=== PATIENT | female | born 1940 | race Caucasian/White ===

== ENCOUNTER 2020-01-22 15:07 | Outpatient (CLI) | payer MEDICARE, BC, SELFPAY ==
[2020-01-22 15:26] LABS: Basophils Percent Auto 0.5 % (0.2-1.2); Eosinophils Absolute Auto 0.1 K/mm3 (0-0.3); Eosinophils Percent Auto 1.3 % (0-4.4); Hematocrit 40.5 % (37.0-47.0); Hemoglobin 13.7 g/dL (12.0-15.0); Immature Granulocyte Absolute 0.02 K/mm3 (0.00-0.031); Immature Granulocyte Percent A 0.3 % (0-0.5); Lymphocytes Absolute Auto 2.82 K/mm3 (0.9-3.2); Lymphocytes Percent Auto 36.9 % (18.3-44.2); Mean Corpuscular HGB Conc 33.8 g/dl (32-36); Mean Corpuscular Hemoglobin 29.7 pg (26-34); Mean Corpuscular Volume 87.7 fl (80-100); Mean Platelet Volume 9.8 fl (7.4-10.4); Monocytes Absolute Auto 0.6 K/mm3 (0.1-0.6); Monocytes Percent Auto 7.6 % (2.6-8.5); Neutrophils Absolute Auto 4.1 K/mm3 (1.3-6.7); Neutrophils Percent Auto 53.4 % (45.5-73.1); Platelet Count Result 287 k/mm3 (150-375); Red Blood Count 4.62 M/mm3 (4.2-5.4); Red Cell Distribution Width 13.2 % (11.5-14.5); White Blood Count 7.6 K/mm3 (4.5-10.0)
[2020-01-22 15:39] LABS: Alanine Aminotransferase 18 U/L (4-35); Alkaline Phosphatase 62 U/L (38-126); Aspartate Amino Transferase 28 U/L (14-36); Bilirubin,Total 0.7 mg/dL (0.2-1.3); Blood Urea Nitrogen 9 mg/dL (7-17); Calcium 9.2 mg/dL (8.4-10.2); Carbon Dioxide 27 mmol/L (22-30); Chloride 106 mmol/L (98-107); Cholesterol 203 mg/dL (0-200); Estimated Glomerular Filt Rate > 60; Glucose 96 mg/dL (65-105); HDL Direct 39 mg/dL; Potassium 3.7 mmol/L (3.4-5.0); Sodium 139 mmol/L (137-145); Triglycerides 259 mg/dL (<150)
[2020-01-22 15:55] LABS: LDL Cholesterol Direct 115 mg/dL
[2020-01-22 16:35] LABS: Free T4 Free Thyroxine 0.99 ng/mL (0.78-2.19)
== END 2020-01-22 15:08 | disposition home or self-care (01) ==
PROVIDERS: PCP Family Medicine; Visit Provider Family Medicine
DX: R60.9 Edema, unspecified (principal); I10 Essential (primary) hypertension; Z79.899 Other long term (current) drug therapy
CPT/HCPCS: 36415; 80053; 80061; 84439; 84443; 85025

== ENCOUNTER 2020-03-18 15:01 | Outpatient (CLI) | payer MEDICARE, BC, SELFPAY ==
--- NOTE | ~2020-03-18 | MM_ITS ---
EXAMINATION: MM screening connie BI w fernando HISTORY: Screening TECHNIQUE: Craniocaudal and mediolateral oblique 3-D tomosynthesis images were obtained and synthetic 2-D images were generated. CAD analysis was submitted and interpreted. COMPARISON: Comparison to multiple prior studies sequentially, with oldest reviewed study dated 09/27. BREAST PARENCHYMAL COMPOSITION: There are scattered areas of fibroglandular density. FINDINGS: There is no evidence of suspicious mass, calcification, or architectural distortion to sugg est malignancy in either breast. There has been no suspicious interval change. IMPRESSION: 1. No mammographic evidence of malignancy. 2. Recommend routine screening mammography in one year. BI-RADS Category 1: Negative Reviewed, dictated and finalized at location A.
--- NOTE | ~2020-03-18 | DEXA_ITS ---
Bone Density Report Name: Sara Sparrow Age: 79 Sex: Female Ethnicity: White Date of : 1940 Indication: postmenopausal; Referring Provider: Arben Bautista Study: Bone densitometry was performed. Exam Date: March 18, 2020 Accession number: [id number] Bone Density: Region BMD T-score Z-score Classification AP Spine (L1-L4) 0.977 -0.6 2.0 Normal Femoral Neck (Left) 0.715 -1.2 1.1 Osteopenia Total Hip (Left) 0.871 -0.6 1.5 Normal Total Hip Bilateral Avg 0.832 -0.9 1.2 Normal Femoral Neck (Right) 0.640 -1.9 0.4 Osteopenia Total Hip (Right) 0.791 -1.2 0.8 Osteopenia World Health Organization criteria for BMD impression classify patients as: Normal (T-score at or above -1.0), Osteopenia (T-score between -1.0 and -2.5), or Osteoporosis (T-score at or below -2.5). 10-year Fracture Risk(1): Major Osteoporotic Fracture 15% Hip Fracture 4.1% Reported Risk Factors: [place] (), Neck BMD=0.640, BMI=25.6 (1) FRAX(R) Version 3.08. Fracture probability calculated for an untreated patient. Fracture probability may be lower if the patient has received treatment. Previous Exams: Region Exam Age BMD T-score BMD Change BMD Change Date g/cm2 vs Baseline vs Previous AP Spine(L1-L4) 03/18/2020 79 0.977 -0.6 0.019(2.0%)# -0.089(-8.4%)# 06/19/2008 68 1.066 0.2 0.108(11.3%)* 0.108(11.3%)* 02/08/2002 61 0.958 -0.8 Total Hip(Left) 03/18/2020 79 0.871 -0.6 -0.037(-4.1%)# -0.071(-7.6%)# 06/19/2008 68 0.942 0.0 0.034(3.7%)* 0.034(3.7%)* 02/08/2002 61 0.909 -0.3 Total Hip(Right) 03/18/2020 79 0.791 -1.2 -0.081(-9.3%)# -0.097(-11.0%) 06/19/2008 68 0.888 -0.4 0.016(1.9%) 0.016(1.9%) 02/08/2002 61 0.872 -0.6 *Denotes significance at 95% confidence level, LSC for AP Spine = 0.022 g/cm2, LSC for Total Hip = 0.027 g/cm2 Clinical Information Provided by Patient: Patient maximum height was 64 Menopause Age: 45 Drinks caffeinated beverages Onset of menses at age 17 Number of children 0 Impression: The patient has low bone mass, based on the Right Femoral Neck T-score. The patient has an estimated ten-year risk of hip fracture of 4.1% and an estimated ten-year risk of major fracture of 15%, based on the WHO FRAX algorithm. No significant bone loss was observed. Discussion: BONE DENSITY IS LOW AT ONE OR MORE SKELETAL SITES. THE PATIENT'S BMD AND CLINICAL RISK FACTORS CONTRIBUTE TO THIS
== END 2020-03-18 15:02 | disposition home or self-care (01) ==
LOC: ANHIMG 15:02
PROVIDERS: PCP Family Medicine; Visit Provider Family Medicine
DX: Z12.31 Encounter for screening mammogram for malignant neoplasm of breast (principal); Z78.0 Asymptomatic menopausal state; M85.852 Other specified disorders of bone density and structure, left thigh; M85.851 Other specified disorders of bone density and structure, right thigh
CPT/HCPCS: 77063; 77067; 77080

== ENCOUNTER 2020-06-17 10:25 | Emergency (ER) | payer MEDICARE, BC, SELFPAY ==
--- NOTE | ~2020-06-17 | XR_ITS ---
EXAMINATION: XR chest 1V portable DATE: 06/17/2020 11:17 INDICATION: Weakness. TECHNIQUE: A single frontal view of the chest was obtained. COMPARISON: Chest 2 views 07/19/2019 FINDINGS: There is mild atelectasis in left midlung zone. No pleural effusion or pneumothorax. The he art size is normal. IMPRESSION: 1. Mild atelectasis in left midlung zone. Reviewed, dictated and finalized at location B. [employer]
--- NOTE | 2020-06-17 10:30 | ECG_ITS ---
Measurements Intervals [place] Rate: 81 P: 58 GA: 149 QRS: -7 QRSD: 81 T: 13 QT: 354 QTc: 413 Interpretive Statements SINUS RHYTHM DELAYED PRECORDIAL R/S TRANSITION INFERIOR INFARCT, AGE INDETERMINATE BORDERLINE ST-T WAVE ABNORMALITY- ANTEROLAT/HIGH LAT LEADS BASELINE ARTIFACT- I, III, AVL ABNORMAL ECG Electronically Signed On 06-17-2020 10:59:45 MEDICAL SUPERINTENDENT by Abraham Sosa D.O.
[2020-06-17 10:32] VITALS: PULSE 88; RESP 24
[2020-06-17 10:33] VITALS: BP 147/77; PULSE 93; RESP 19; TEMP 36.2; O2SAT 99
[2020-06-17 10:34] VITALS: BP 147/77; PULSE 100; RESP 16; O2SAT 97
[2020-06-17 10:56] VITALS: PULSE 85
[2020-06-17 11:06] LABS: Basophils Percent Auto 0.3 % (0.2-1.2); Eosinophils Percent Auto 0.3 % (0-4.4); Hematocrit 45.5 % (37.0-47.0); Hemoglobin 15.2 g/dL (12.0-15.0); Immature Granulocyte Absolute 0.01 K/mm3 (0.00-0.031); Immature Granulocyte Percent A 0.2 % (0-0.5); Lymphocytes Absolute Auto 2.62 K/mm3 (0.9-3.2); Lymphocytes Percent Auto 44.4 % (18.3-44.2); Mean Corpuscular HGB Conc 33.4 g/dl (32-36); Mean Corpuscular Hemoglobin 29.5 pg (26-34); Mean Corpuscular Volume 88.2 fl (80-100); Mean Platelet Volume 9.8 fl (7.4-10.4); Monocytes Absolute Auto 0.5 K/mm3 (0.1-0.6); Monocytes Percent Auto 8.3 % (2.6-8.5); Neutrophils Absolute Auto 2.7 K/mm3 (1.3-6.7); Neutrophils Percent Auto 46.5 % (45.5-73.1); Platelet Count Result 242 k/mm3 (150-375); Red Blood Count 5.16 M/mm3 (4.2-5.4); Red Cell Distribution Width 13.3 % (11.5-14.5); White Blood Count 5.9 K/mm3 (4.5-10.0)
[2020-06-17 11:17] LABS: Alanine Aminotransferase 21 U/L (4-35); Alkaline Phosphatase 57 U/L (38-126); Anion Gap 9 mmol/L (8-16); Aspartate Amino Transferase 38 U/L (14-36); Bilirubin,Total 0.7 mg/dL (0.2-1.3); Blood Urea Nitrogen 13 mg/dL (7-17); Calcium 8.9 mg/dL (8.4-10.2); Carbon Dioxide 27 mmol/L (22-30); Chloride 103 mmol/L (98-107); Estimated CRCL calculation 42 ml/min; Estimated Glomerular Filt Rate > 60; Glucose 131 mg/dL (65-105); Potassium 3.8 mmol/L (3.4-5.0); Sodium 139 mmol/L (137-145)
--- NOTE | 2020-06-17 11:21 | ED.WEAKNESS ---
HPI - Weakness General Chief complaint: Weakness Stated complaint: altered mental status Time Seen by Provider: 06/17/20 11:05 History of Present Illness HPI Narrative: 80 yo female w/ h/o htn, hypercholesterolemia presents to the ED from home for weakness. She reports that she has not been feeling right for the past few days. She is not able to provide very much detail on her symptoms. She does say that she has fallen a few times in the past week. She does not endorse dizziness, but says that she does not know why she is falling. She has intermittent cough. Decreased appetite. No fever, SOB. Related Data Home Medications Medication Instructions Recorded Confirmed losartan 50 mg-hydrochlorothiazide 1 tablet PO DAILY 07/04/19 12.5 mg tablet Allergies Allergy/AdvReac Type Severity Reaction Status Date / Time Sulfa (Sulfonamide Allergy Unknown caused Verified 06/17/20 10:58 Antibiotics) kidney infection 60 years ago. Review of Systems Constitutional: Constitutional: Reports weakness Eyes: Eyes: Denies change in vision ENT: Denies sore throat Cardiovascular: Cardiovascular: Denies chest pain Respiratory: Respiratory: Reports cough, Denies dyspnea and Denies wheezing Gastrointestinal: Gastrointestinal: Denies abdominal pain, Denies constipation, Denies diarrhea, Denies nausea and Denies vomiting Genitourinary: Genitourinary: Denies hematuria, Denies nocturia and Denies dysuria Musculoskeletal: Musculoskeletal: Denies back pain Neurologic: Denies dizziness, Denies syncope and Reports weakness Psychiatric: Psychiatric: Reports anxiety [facility] Family History Family History Mother Family history of elevated blood lipids, Onset Age: 95 Father Family history of lymphoma Social History Social History Alcohol intake: current Gender identity (if verbalized by the patient): Female Exam Const: General: healthy appearing, no acute distress and alert Orientation/consciousness: patient oriented x3 HENMT: Head: normal to inspection Neck: Neck: normal visual inspection and no lymphadenopathy Chest: Chest palpation & inspection: no tenderness Resp: Effort & Inspection: normal respiratory effort Auscultation: clear to auscultation bilaterally, no rales, no rhonchi and no wheezes Cardio: Jugular venous distension: no JVD Rate: regular rate Rhythm: regular rhythm Heart sounds: no murmurs GI: Inspection: non-distended GI Palp: Yes Soft to palpation and No Tenderness to palpation present (GI) Skin: General skin exam: normal color Neuro: General: patient oriented x3, moves all extremities, no focal motor deficits and CN's II-XI intact bilaterally Speech: normal speech Gait exam (Neuro): Normal gait present Extrem: General: normal to inspection and no edema Psych: Appearance: well kempt Affect: normal affect Course Vital Signs Vital signs: Vital Signs Pulse Rate 88 06/17/20 10:32 Respiratory Rate 24 H 06/17/20 10:32 Temperature 36.2 C L 06/17/20 10:33 Pulse Rate 85 06/17/20 10:56 Respiratory Rate 16 06/17/20 10:34 Blood Pressure 147/77 H 06/17/20 10:34 Pulse Oximetry 97 06/17/20 10:34 MDM - Weakness MDM Narrative Medical decision making narrative: She seems to be mildly dehydrated otherwise very well appearing. Labs and imaging reassuring. I will swab her for COVID-19 due to the fact that her is high risk and she is having nonspecific symptoms. Medical Records Attestation: I reviewed the patient's medical records. Lab Data Attestation: I reviewed the patient's lab results. Result diagrams: 06/17/20 10:50 06/17/20 10:51 Labs: Lab Results 06/17/20 06/17/20 06/17/20 Range/Units 10:50 10:51 11:13 WBC 5.9 (4.5-10.0) K/mm3 RBC 5.16 (4.2-5.4) M/mm3 Hgb 15.2 H (12.0-1
[2020-06-17 11:23] LABS: Add Urine Microscopic? YES; Appearance Urine Cloudy (Clear); Bacteria Urine 4+ /hpf; Bilirubin Urine Negative (Negative); Blood Urine Negative (Negative); Color Urine Yellow (Yellow); Glucose Urine UA Negative (Negative); Ketones Urine Negative (Negative); Leukocyte Esterase Ur Negative LEU/UL (Negative); Mucus Urine Few /lpf; Nitrate Urine Negative (Negative); Protein Urine 1+ mg/dL (Negative); RBC Urine 0-2 /hpf (0-2); Specific Grav Ur 1.023 (1.001-1.035); Squamous Epithelial Cell Urine Many /hpf (Few); Transitional Epi Cells Urine Rare /hpf (None Seen); Urobilinogen Urine Negative mg/dL (<2.0); WBC Urine 0-3 /hpf
[2020-06-17] MEDS: SODIUM CHLORIDE 0.9% IV 500 ML 999 ML IV CONT (11:29)
[2020-06-17 14:12] VITALS: BP 147/70; PULSE 84; RESP 17; O2SAT 96
[2020-06-18 16:06] LABS: SARS-CoV-2 RNA PCR Positive
== END 2020-06-17 14:13 | disposition home or self-care (01) ==
PROVIDERS: Emergency Medicine; Emergency Provider Emergency Medicine; PCP Family Medicine
DX: U07.1 COVID-19 (principal); R94.31 Abnormal electrocardiogram [ECG] [EKG]
CPT/HCPCS: 36415; 71045; 80053; 81001; 85025; 87635; 93005; 96360; 99283; C9803; J7040; U0003

== ENCOUNTER 2020-12-24 14:54 | Outpatient (CLI) | payer MEDICARE, BC, SELFPAY ==
[2020-12-24 15:18] LABS: Basophils Absolute Auto 0.1 K/mm3 (0.0-0.1); Basophils Percent Auto 0.7 % (0.2-1.2); Eosinophils Absolute Auto 0.1 K/mm3 (0-0.3); Eosinophils Percent Auto 0.8 % (0-4.4); Hematocrit 44.3 % (37.0-47.0); Hemoglobin 14.3 g/dL (12.0-15.0); Immature Granulocyte Absolute 0.09 K/mm3 (0.00-0.031); Immature Granulocyte Percent A 1.2 % (0-0.5); Lymphocytes Absolute Auto 2.91 K/mm3 (0.9-3.2); Lymphocytes Percent Auto 39.8 % (18.3-44.2); Mean Corpuscular HGB Conc 32.3 g/dl (32-36); Mean Corpuscular Hemoglobin 28.6 pg (26-34); Mean Corpuscular Volume 88.6 fl (80-100); Mean Platelet Volume 9.8 fl (7.4-10.4); Monocytes Absolute Auto 0.7 K/mm3 (0.1-0.6); Monocytes Percent Auto 9.8 % (2.6-8.5); Neutrophils Absolute Auto 3.5 K/mm3 (1.3-6.7); Neutrophils Percent Auto 47.7 % (45.5-73.1); Platelet Count Result 315 k/mm3 (150-375); Red Cell Distribution Width 13.3 % (11.5-14.5); White Blood Count 7.3 K/mm3 (4.5-10.0)
[2020-12-24 15:22] LABS: Alanine Aminotransferase 17 U/L (4-35); Albumin Level 4.1 g/dL (3.5-5.1); Alkaline Phosphatase 66 U/L (38-126); Anion Gap 7 mmol/L (8-16); Aspartate Amino Transferase 28 U/L (14-36); Bilirubin,Total 1.1 mg/dL (0.2-1.3); Blood Urea Nitrogen 14 mg/dL (7-17); Calcium 9.6 mg/dL (8.4-10.2); Carbon Dioxide 30 mmol/L (22-30); Chloride 105 mmol/L (98-107); Cholesterol 176 mg/dL (0-200); Estimated Glomerular Filt Rate > 60; Glucose 104 mg/dL (65-105); HDL Direct 51 mg/dL; Potassium 3.7 mmol/L (3.4-5.0); Sodium 142 mmol/L (137-145); Triglycerides 83 mg/dL (<150)
[2020-12-24 15:31] LABS: Hemoglobin A1C 5.7 % (<5.7)
[2020-12-24 15:33] LABS: LDL Cholesterol Direct 87 mg/dL
[2020-12-24 15:58] LABS: Free T4 Free Thyroxine 1.21 ng/mL (0.78-2.19)
== END 2020-12-24 14:55 | disposition home or self-care (01) ==
LOC: ANHLAB 14:57
PROVIDERS: PCP Family Medicine; Visit Provider Family Medicine
DX: R60.9 Edema, unspecified (principal); E78.2 Mixed hyperlipidemia; E04.9 Nontoxic goiter, unspecified; Z51.81 Encounter for therapeutic drug level monitoring; Z79.899 Other long term (current) drug therapy; I10 Essential (primary) hypertension
CPT/HCPCS: 36415; 80053; 80061; 83036; 84439; 84443; 85025

== ENCOUNTER 2020-12-27 12:31 | Emergency (ER) | payer MEDICARE, BC, SELFPAY ==
[2020-12-27 12:39] VITALS: BP 179/91; PULSE 82; RESP 16; TEMP 36.4; O2SAT 100
[2020-12-27 12:43] VITALS: BP 179/91; PULSE 82; RESP 16; TEMP 36.4; O2SAT 100
--- NOTE | 2020-12-27 13:29 | ED.SKABFB ---
HPI - Skin/Abscess/Foreign Bdy General Chief complaint: Skin/Abscess/Foreign Body Stated complaint: Insect bite on stomach Time Seen by Provider: 12/27/20 13:20 Source: patient and RN notes reviewed Mode of arrival: ambulatory Limitations: no limitations History of Present Illness HPI narrative: Patient presents today complaining of an insect bite that she felt to her abdomen last night while walking her dog. States some itching and reports redness to the abdomen that has worsened since this morning. She has been using some topical antiitch cream with mild relief. Denies any history of abscesses, boils, staph infections. MD complaint: insect bite/sting Related Data Home Medications Medication Instructions Recorded Confirmed losartan 50 mg-hydrochlorothiazide 1 tablet PO DAILY 07/04/19 12/27/20 12.5 mg tablet Allergies Allergy/AdvReac Type Severity Reaction Status Date / Time Sulfa (Sulfonamide Allergy Unknown caused Verified 12/27/20 12:39 Antibiotics) kidney infection 60 years ago. Review of Systems Review of Systems: Narrative: CONSTITUTIONAL: Denies body aches, fever, chills, or sweats. EYES: Denies visual changes, redness, or discharge. ENT: Denies rhinorrhea, congestion, sore throat, or otalgia. CARDIOVASCULAR: Denies chest pain, palpitations, or edema. RESPIRATORY: Denies cough or dyspnea. GASTROINTESTINAL: Denies abdominal pain, nausea, vomiting, or diarrhea. GENITOURINARY: Denies dysuria or hematuria. SKIN: Insect bite and redness to abdomen MUSCULOSKELETAL: Denies back pain, joint pain, or myalgia. NEUROLOGIC: Denies headache, numbness, tingling, or weakness. PSYCH: Denies depression or anxiety. [facility] Family History Family History Mother Family history of elevated blood lipids, Onset Age: 95 Father Family history of lymphoma Social History Social History Smoking status: Never smoker Alcohol intake: current Gender identity (if verbalized by the patient): Female Comments At time of signature, I have reviewed and agree with nursing past medical, surgical, social and family history unless otherwise noted. Please see nursing chart for further information. There is no relevant family history pertinent to the presenting complaint Exam Narrative: Exam Narrative: GENERAL: Well-appearing, well-nourished, and in no acute distress. HEAD: Normocephalic, atraumatic. EYES: EOMI. No redness or drainage. Conjunctivae normal. ENT: Mucous membranes pink and moist. NECK: Normal AROM. CHEST: No respiratory distress. ABDOMEN: Soft, nontender, nondistended, normal active bowel sounds. MUSCULOSKELETAL: No bony tenderness. EXTREMITIES: Normal range of motion. No edema. SKIN: Warm, dry, no rash. Capillary refill normal. Normal skin turgor. 3 mm round pustule to the lower abdomen midline surrounded by 13 x 9 cm redness with slight induration. Warm to touch. No fluctuance noted. NEURO: No focal deficits. Alert and oriented x3. Gait steady. PSYCH: Normal affect. No signs of depression or anxiety. Course Vital Signs Vital signs: Vital Signs Temperature 97.6 F 12/27/20 12:39 Pulse Rate 82 12/27/20 12:39 Respiratory Rate 16 12/27/20 12:39 Blood Pressure 179/91 H 12/27/20 12:39 Pulse Oximetry 100 12/27/20 12:39 Temperature 97.6 F 12/27/20 12:43 Pulse Rate 82 12/27/20 12:43 Respiratory Rate 16 12/27/20 12:43 Blood Pressure 179/91 H 12/27/20 12:43 Pulse Oximetry 100 12/27/20 12:43 Reviewed. Pt has been instructed to follow up with her PCP regarding her elevated blood pressure today. Procedures Abscess I/D abdomen: Date of Incision: 12/27/20 Time of Incision: 13:30 Local Anesthetic: none Technique: other (incised with needle tip) Irrigation: No Packing used?: none I&D Results: O
== END 2020-12-27 13:35 | disposition home or self-care (01) ==
PROVIDERS: Emergency Provider Nurse Practitioner; PCP Family Medicine
DX: L03.311 Cellulitis of abdominal wall (principal); S30.861A Insect bite (nonvenomous) of abdominal wall, initial encounter; W57.XXXA Bitten or stung by nonvenomous insect and other nonvenomous arthropods, initial encounter; I10 Essential (primary) hypertension; J45.909 Unspecified asthma, uncomplicated; H26.9 Unspecified cataract
CPT/HCPCS: 10140; 99213; G0463

== ENCOUNTER 2020-12-29 06:48 | Outpatient (CLI) | payer MEDICARE, BC, SELFPAY ==
--- NOTE | ~2020-12-29 | CT_ITS ---
EXAMINATION: CT soft tissue neck w con DATE: 12/29/2020 07:17 INDICATION: Neck mass. TECHNIQUE: Computed tomography (CT) of the neck was performed with 75 mL Omnipaque-350 intravenous co ntrast. Automated exposure control and iterative reconstruction technique were employed. The dose-franklyn gth product was 439.16 mGy-cm. COMPARISON: None FINDINGS: The lung apices demonstrates mosaic attenuation, likely small airways disease. There are li mika changes of ocular lens replacement surgeries. There is plaque in the proximal internal carotid a rteries with less than 50% stenosis relative to normal distal artery lumen diameters. There are no pa thologically enlarged lymph nodes. Inferior to the hyoid centered to the left midline, there is a 2.6 x 1.5 x 2.3 cm cystic mass that abuts a long pyramidal lobe of the thyroid. There are nodules in the left thyroid lobes measuring up to 9 mm, likely not clinically significant. IMPRESSION: 1. 2.6 cm cystic mass inferior to the hyoid centered to the left of midline, consistent with a thyrog lossal duct cyst. Reviewed, dictated and finalized at location A. IMPRESSION: 1. 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
== END 2020-12-29 06:49 | disposition home or self-care (01) ==
PROVIDERS: PCP Family Medicine; Visit Provider Family Medicine
DX: J98.4 Other disorders of lung (principal)
CPT/HCPCS: 70491; Q9967

== ENCOUNTER 2021-04-12 09:52 | Outpatient (CLI) | payer MEDICARE, BC, SELFPAY ==
--- NOTE | ~2021-04-12 | MM_ITS ---
EXAMINATION: MM screening connie BI w fernando HISTORY: Screening mammogram TECHNIQUE: Craniocaudal and mediolateral oblique 3-D tomosynthesis images were obtained and synthetic 2-D images were generated. CAD analysis was submitted and interpreted. COMPARISON: 03/18/2020, 09/27/2018, 07/04/2017 BREAST PARENCHYMAL COMPOSITION: The breasts are heterogeneously dense, which may obscure small masses . FINDINGS: Scattered benign-appearing calcifications are present. There is no evidence of suspicious m ass, calcification, or architectural distortion to suggest malignancy in either breast. There has bee n no suspicious interval change. IMPRESSION: 1. No mammographic evidence of malignancy. 2. Recommend routine screening mammography in one year. BI-RADS Category 2: Benign finding(s). Reviewed, dictated and finalized at location A.
== END 2021-04-12 09:53 | disposition home or self-care (01) ==
LOC: ANHIMG 09:54
PROVIDERS: PCP Family Medicine; Visit Provider Family Medicine
DX: Z12.31 Encounter for screening mammogram for malignant neoplasm of breast (principal)
CPT/HCPCS: 77063; 77067

== ENCOUNTER 2021-04-13 10:10 | Inpatient (IN) | payer MEDICARE, BC, SELFPAY ==
[2021-04-13] VITALS (9 sets, daily range): BP systolic 127–156; BP diastolic 57–84; PULSE 69–94; RESP 16–20; TEMP 36.4–36.8; O2SAT 97–100; BMI 24.2
--- NOTE | ~2021-04-13 | CT_ITS ---
EXAMINATION: CT brain wo con EXAM DATE: 04/13/2021 13:51 INDICATION: Dizziness . TECHNIQUE: Spiral CT of the head was performed without contrast. Axial, coronal and sagittal images were reviewed. The dose-length product (DLP) for this examination was 529.67 mGy-cm. The exposure w as tailored according to patient size, and iterative reconstruction (ASIR) was used as additional dos e reduction technique. There is no prior study for comparison. FINDINGS: There is no acute intraparenchymal hemorrhage. No evidence of intraparenchymal brain mass lesion. No evidence of acute infarction. Please note that initial head CT has limited sensitivity f or small or acute infarctions. There is moderate periventricular and subcortical hypodensity, nonspec ific but probably related to small vessel ischemic disease. There is prominence of the sulci and ve ntricles related to cerebral atrophy. There is intracranial carotid arteriosclerosis. There are no extra-axial collections. There is no mass effect or midline shift. Patient has had bilateral ocula r lens surgery. Soft tissue is unremarkable. The visualized sinuses and mastoid air cells are well aerated. IMPRESSION: 1. No acute intracranial findings. 2. Chronic age related findings. Reviewed, dictated and finalized at location A.
--- NOTE | ~2021-04-13 | CT_ITS ---
EXAMINATION: CT abdomen pelvis wo/w con EXAM DATE: 04/14/2021 17:13 INDICATION: 4 cm retroperitoneal mass on chest CTA 04/13. TECHNIQUE: Spiral CT of the abdomen and pelvis was performed without contrast. Abdomen was rescanned with intravenous injection of 100 mL Omnipaque 350. Oral contrast was also administered for the post contrast scan. Axial, coronal and sagittal images of the abdomen and pelvis were reviewed. The dose -length product (DLP) for this examination was 343.83 mGy-cm. The exposure was tailored according to patient size (auto mA exposure control), and iterative reconstruction (ASIR) was used as additional dose reduction technique. Comparison is made to prior examination from 04/13/2021 CT pulmonary scan. FINDINGS: There is bilobulated mass at the gastric cardia, approximately half of which projects into the lumen of the stomach and the other half in the left suprarenal region. This measures about 7.5 x 4.6 cm as measured on the coronal sequence. 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 There are gallstones within an othe rwise unremarkable gallbladder. No evidence of obstructive biliary disease. Portal and splenic vein s are patent. Kidneys enhance symmetrically. There is no hydronephrosis. No nephrolithiasis on the precontrast scan The uterus is not identified and has likely been surgically resected. The bladder is unremarkable. There is no retroperitoneal or pelvic lymphadenopathy. There is moderate scattere d arteriosclerotic disease. There are no findings to suggest appendicitis. There is expected amount of colonic stool. No jami e intraperitoneal gas. The heart is normal in size. There are no pericardial or pleural effusions. The lung bases are unremarkable. There are no osteoblastic or osteolytic lesions identified. 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 Lymphoma or other h istology also possible; endoscopy, biopsy indicated. No lymphadenopathy. Reviewed, dictated and finalized at location A. IMPRESSION: Gastric cardial mass most likely gastrointestinal stromal cell tumo r. Lymphoma or other histology also possible; endoscopy, biopsy indicated. No l ymphadenopathy.
--- NOTE | ~2021-04-13 | XR_ITS ---
XR chest 2V DATE: 04/13/2021 10:33 INDICATION: Dyspnea TECHNIQUE: PA and lateral views COMPARISON: 06/17/2020 portable upright AP chest FINDINGS: Normal heart size. No hilar or mediastinal enlargement. Minimal discoid atelectasis in the right mid lung. The lungs are clear of infiltrate or consolidation. No pleural effusion or pulmonary vascular congestion or pneumothorax. Degenerative spurring of the thoracic spine. IMPRESSION: Minimal discoid atelectasis in the right mid lung; no active cardiopulmonary disease Reviewed, dictated and finalized at location A. IMPRESSION: Minimal discoid atelectasis in the right mid lung; no active cardio pulmonary disease
--- NOTE | ~2021-04-13 | CT_ITS ---
EXAMINATION: CTA chest PE protocol DATE: 04/13/2021 13:51 INDICATION: Shortness of breath, dizziness TECHNIQUE: Computed tomography angiography (CTA) of the chest was performed with 100 mL Omnipaque-350 intravenous contrast timed to evaluate the pulmonary arteries. Coronal maximum intensity projection 3D-reconstructions were created by the technologist. Automated exposure control and iterative reconst ruction technique were employed. Exam dose: 261.75 mGy-cm total exam DLP. COMPARISON: 04/13/2021 2 view chest FINDINGS: There is diagnostic contrast enhancement of the pulmonary arteries and no evidence of pulmo nary embolism. No thoracic aortic aneurysm or dissection. There is coronary artery calcification. Normal heart size. No pericardial or pleural effusion. No hilar or mediastinal mass lesion or lymphadenopathy. There is a 4 mm nodule of the middle lobe (series 4 image 66). There is mild discoid atelectasis or scarring in the middle lobe and lingula. There is patchy groundglass density of the lungs which may indicate small airways disease. Incidentally noted are multiple gallstones. Normal morphology of the right adrenal gland. There is an approximately 3.2 x 4 cm soft tissue densit y adjacent to the left adrenal gland, situated posterior aspect of the upper body of the stomach, wit hout intervening fat interface between this soft tissue density in the posterior wall of the stomach, bordered inferiorly by the upper pole of the kidney and by the medial aspect of the spleen. This terrell ht be a diverticulum or mass of the posterior aspect of the stomach, including gastrointestinal jagdeep al tumor, left adrenal mass or much less likely upper pole left renal mass lesion or retroperitoneal sarcoma. Consider repeat CT abdomen imaging with oral contrast medium. Degenerative disc disease of the lower cervical spine. 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 No suspicious osteolytic or osteoblastic lesions are noted. IMPRESSION: No evidence of pulmonary embolism 4 mm nonspecific middle lobe mass; six-month CT follow-up is recommended Mild discoid atelectasis or scarring of the middle lobe and lingula Mild patchy groundglass density of the lungs, possibly due to small airways disease 3.2 x 4 cm left retroperitoneal soft tissue density. Differential diagnosis includes left adrenal mas s, gastric mass, gastric diverticulum, gastrointestinal stromal tumor, retroperitoneal sarcoma Reviewed, dictated and finalized at [facility]. Reviewed, dictated and finalized at location A. IMPRESSION: No evidence of pulmonary embolism 4 mm nonspecific middle lobe mass; six-month CT follow-up is recommended Mild discoid atelectasis or scarring of the middle lobe and lingula Mild patchy groundglass density of the lungs, possibly due to small airways dis ease 3.2 x 4 cm left retroperitoneal soft tissue density. Differential diagnosis inc ludes left adrenal mass, gastric mass, gastric diverticulum, gastrointestinal s tromal tumor, retroperitoneal sarcoma
--- NOTE | 2021-04-13 10:18 | ECG_ITS ---
Measurements Intervals [place] Rate: 87 P: 56 LA: 145 QRS: -6 QRSD: 87 T: 46 QT: 358 QTc: 432 Interpretive Statements SINUS RHYTHM INCOMPLETE RIGHT BUNDLE BRANCH BLOCK INFERIOR INFARCT, AGE INDETERMINATE BORDERLINE ST-T WAVE ABNORMALITY- ANTEROLATERAL LEADS BASELINE ARTIFACT- I, II, AVR, AVL ABNORMAL ECG Electronically Signed On 04-13-2021 15:03:20 CDT by Abraham Sosa D.O.
[2021-04-13 11:53] LABS: Basophils Percent Auto 0.3 % (0.2-1.2); Eosinophils Percent Auto 0.4 % (0-4.4); Hematocrit 31.1 % (37.0-47.0); Hemoglobin 9.9 g/dL (12.0-15.0); Immature Granulocyte Absolute 0.07 K/mm3 (0.00-0.031); Immature Granulocyte Percent A 0.7 % (0-0.5); Lymphocytes Absolute Auto 1.93 K/mm3 (0.9-3.2); Lymphocytes Percent Auto 19.3 % (18.3-44.2); Mean Corpuscular HGB Conc 31.8 g/dl (32-36); Mean Corpuscular Hemoglobin 29.7 pg (26-34); Mean Corpuscular Volume 93.4 fl (80-100); Mean Platelet Volume 9.4 fl (7.4-10.4); Monocytes Absolute Auto 0.6 K/mm3 (0.1-0.6); Monocytes Percent Auto 6.3 % (2.6-8.5); Neutrophils Absolute Auto 7.3 K/mm3 (1.3-6.7); Platelet Count Result 416 k/mm3 (150-375); Red Blood Count 3.33 M/mm3 (4.2-5.4); Red Cell Distribution Width 15.3 % (11.5-14.5)
[2021-04-13 11:55] LABS: Add Urine Microscopic? NO; Appearance Urine Clear (Clear); Bilirubin Urine Negative (Negative); Blood Urine Negative (Negative); Color Urine Straw (Yellow); Glucose Urine UA Negative (Negative); Ketones Urine Negative (Negative); Leukocyte Esterase Ur Negative LEU/UL (Negative); Nitrate Urine Negative (Negative); Protein Urine Negative (Negative); Specific Grav Ur 1.005 (1.001-1.035); Urobilinogen Urine Negative mg/dL (<2.0)
[2021-04-13 12:05] LABS: Alanine Aminotransferase 18 U/L (4-35); Albumin Level 3.9 g/dL (3.5-5.1); Alkaline Phosphatase 61 U/L (38-126); Anion Gap 5 mmol/L (8-16); Aspartate Amino Transferase 30 U/L (14-36); Bilirubin,Total 0.7 mg/dL (0.2-1.3); Blood Urea Nitrogen 16 mg/dL (7-17); Calcium 9.2 mg/dL (8.4-10.2); Carbon Dioxide 33 mmol/L (22-30); Chloride 101 mmol/L (98-107); Estimated CRCL calculation 42 ml/min; Estimated Glomerular Filt Rate > 60; Glucose 113 mg/dL (65-110); Potassium 3.9 mmol/L (3.4-5.0); Sodium 139 mmol/L (137-145)
[2021-04-13 12:17] LABS: NT Pro B Type Natriuretic Pept 117 pg/mL (5-100); Troponin I < 0.012 ng/mL (0.000-0.034)
[2021-04-13 12:19] LABS: INR 0.9; Prothrombin Time 12.4 Seconds (11.1-14.7)
[2021-04-13 12:22] LABS: D Dimer 0.75 ug/mL (<0.48)
--- NOTE | 2021-04-13 12:37 | ED.GENADULT ---
HPI - General Adult General Chief complaint: Shortness of Breath/Dyspnea Stated complaint: dizzy, dsypnea Time Seen by Provider: 04/13/21 11:24 History of Present Illness HPI narrative: Patient is 80 years old white female presented to the ED with dizziness and hard to breathe for the last 2 weeks. Patient lives alone, lost her September 2020, have trouble sleeping, complaining of intermittent dizziness started 2 weeks ago, gets worse on exertion, also hard to breathe which is almost constantly. Patient did not see her family physician for months, patient been fully vaccinated for COVID-19. History of hyperlipidemia, denies any history of malignancy. Patient does not smoke or drink or uses drugs. Related Data Allergies Allergy/AdvReac Type Severity Reaction Status Date / Time Sulfa (Sulfonamide Allergy Unknown caused Verified 01/14/21 14:54 Antibiotics) kidney infection 60 years ago. Review of Systems Review of Systems: CONSTITUTIONAL: Denies fever, chills, or sweats. EYES: Denies visual changes, redness, or discharge. ENT: Denies rhinorrhea, congestion, sore throat, or otalgia. CARDIOVASCULAR: Denies chest pain, palpitations, or edema. RESPIRATORY: Denies cough or dyspnea. GASTROINTESTINAL: Denies abdominal pain, nausea, vomiting, or diarrhea. GENITOURINARY: Denies dysuria or hematuria. SKIN: Denies rash or itching. MUSCULOSKELETAL: Denies back pain, joint pain, or myalgia. NEUROLOGIC: Denies headache, numbness, or weakness. PSYCHIATRIC: Denies anxiety or depression. [facility] Family History Family History Mother Family history of elevated blood lipids, Onset Age: 95 Thyroid disorder Father Family history of lymphoma Sibling Thyroid disorder Social History Social History Smoking status: Never smoker Alcohol intake: current Substance use: never Gender identity (if verbalized by the patient): Female Exam Narrative: General appearance: Well-developed, well-nourished, looks depressed Skin: Normal color Head: Normocephalic, nontraumatic Eyes: Clear conjunctiva ENT: Oropharynx normal, ears normal, nose normal Neck: Supple, nontender Chest and respiratory: Airway patent, no respiratory distress, no accessory muscle use Heart: Regular rate/rhythm Abdomen: Soft, nontender, no organomegaly, quiet bowel sounds, rectal exam showed black tarry stool, guaiac positive, no gross blood, no mass, no anal pain Vascular: Normal peripheral pulses, normal capillary refill. Musculoskeletal: Normal range of motion, nontender back Neurologic: Alert and oriented ?3, PRECISION FILER HAND is normal as tested, no gross motor deficit Course Course Emergency Course: Stable Consultations Consultation #1: Dr. Estrella Date: 04/13/21 Time: 16:27 Vital Signs Vital signs: Vital Signs Temperature 36.7 C 04/13/21 10:13 Pulse Rate 84 04/13/21 10:13 Respiratory Rate 20 04/13/21 10:13 Blood Pressure 156/84 H 04/13/21 10:13 Pulse Oximetry 100 04/13/21 10:13 Temperature 36.7 C 04/13/21 10:13 Pulse Rate 75 04/13/21 15:48 Respiratory Rate 18 04/13/21 15:48 Blood Pressure 137/57 L 04/13/21 15:48 Pulse Oximetry 97 04/13/21 15:48 Medical Decision Making [facility] Narrative Medical decision making narrative: Patient presents with dizziness and shortness of breath over the last 2 weeks. My differential diagnosis as below. Labs, CT head, orthostatic blood pressure ordered. Further plan to follow. Differential Diagnosis Differential Diagnosis: Anxiety related symptoms, pulmonary congestion, pulmonary embolism, khadar
[2021-04-13] MEDS: PANTOPRAZOLE SODIUM IV 40 MG VIAL IV PUSH (17:19)
--- NOTE | 2021-04-13 18:00 | ADMGEN ---
This patient, Sara Sparrow, was admitted to Medical Room 251-. Patient/family oriented to hospital policies and general routines including ID bracelet, bed and alarms, visiting hours, pain management, procedures, bathroom and other care routines, personal items, smoking policy, room service/diet, and visiting hours. Information on how to activate the Rapid Response Team has been discussed. Patient/Family are encouraged to report perceived risks to care and to ask questions if they do not understand what they are told or what they should do.
[2021-04-13] MEDS: SODIUM CHLORIDE 0.9% IV 1,000 ML 125 ML IV CONT (18:03)
[2021-04-13 18:09] LABS: Hematocrit 31.8 % (37.0-47.0); Hemoglobin 10.2 g/dL (12.0-15.0)
--- NOTE | 2021-04-13 21:00 | PM.IMHP ---
H&P: HPI History of Present Illness Date/Time: 04/13/21 21:00 Chief Complaint: Dyspnea on exertion and dizziness. Narrative: This is a very pleasant 80-year-old female with history of GERD and hypercholesterolemia who presented to the emergency department earlier today via private vehicle from home for evaluation of dyspnea on exertion and dizziness. The patient is very healthy and typically walks her dog 2 to 3 miles each day. Over the last several weeks she has become fatigued with walking with progressive dyspnea on exertion and it is to the point where she can barely walk a mile without feeling exhausted and short of breath. She has also had episodes of lightheadedness and dizziness and thus she came in today for evaluation. On initial workup she was found to have a hemoglobin of 9.9 and on review of previous labs her hemoglobin is typically anywhere between 13.5 and 14.5. Her stool was also noted to be guaiac positive and with further questioning she does admit that her stools have been a bit dark for the last couple of weeks, though she has had normal stools as well. CT of the abdomen and pelvis showed a 3.2 x 4 cm left retroperitoneal soft tissue density with a broad differential diagnosis. She has no known history malignancy but does report nearly a 25 lb weight loss in the last 6 months or so however she lost her in September 2020 and she admits that she was not taking good care of herself while he was still alive and she began with losing weight at that time. She has not had abdominal or epigastric discomfort and she denies abdominal distension and belching. She was previously diagnosed with GERD and took at PPI as needed though she has not had issues with that for quite some time. She has not had a colonoscopy done for several years. Review of Systems Review of Systems: Twelve systems were reviewed with pertinent positives and negatives as per HPI. No fever, chills, or sweats. No recent cold or flu symptoms. She denies cough. Over the last year so she has developed swelling in her neck and was diagnosed with a thyroglossal cyst which is scheduled to be removed sometime in the near future. She denies dysphagia but on occasion she does note that it feels as though she may have difficulty swallowing or as though she has phlegm in the back of her throat. No chest pain, pleuritic pain, or palpitations. No orthopnea, PND, or lower extremity edema. She denies nausea and vomiting. No diarrhea, in fact she tends to be a little more on the constipated side at baseline. No dysuria or hematuria. She has not noticed any lymphadenopathy. No history of anemia or blood transfusions. Except as documented, all other systems were reviewed and are negative. [facility] Past Medical History Medical History (Updated 04/13/21 @ 23:35 by Tabby Dill PA-C) Gastroesophageal reflux disease Hypercholesterolemia Osteopenia Thyroglossal duct cyst Surgical History Surgical History (Updated 04/13/21 @ 23:30 by Tabby Dill PA-C) History of bilateral salpingo-oophorectomy (07/2002) At the time of an exploratory laparotomy done for a pelvic mass, found to have a benign growth on the right ovary, reportedly a cyst adenofibroma. History of colonoscopy (11/2008) Internal hemorrhoids. History of exploratory laparotomy (07/2002) History of hysterectomy for benign disease History of tonsillectomy (1955) Family History Family History Mother Family history of elevated blood lipids, Onset Age: 95 Thyroid disorder Father Family history of lymphoma Sibling Thyroid disorder Social History Social History (Updated 04/13/21 @ 23:32 by Tabby Dill PA-C) Social History: Surrogate decision maker: Vanessa Tidwell, . Code status: Full code. Smoking packs per day: 0.25 Smoking cigarettes per day: 5.0 Years smoked: 2 Smoking pack-years: 0.50 Smoking status: Former smoker
[2021-04-13 22:51] LABS: Hemoglobin 8.5 g/dL (12.0-15.0)
[2021-04-14] VITALS (12 sets, daily range): BP systolic 100–140; BP diastolic 46–67; PULSE 66–75; RESP 16–23; TEMP 36.2–36.9; O2SAT 93–100; BMI 24.4
[2021-04-14 05:39] LABS: Basophils Percent Auto 0.4 % (0.2-1.2); Eosinophils Absolute Auto 0.1 K/mm3 (0-0.3); Eosinophils Percent Auto 1.6 % (0-4.4); Hematocrit 26.7 % (37.0-47.0); Hemoglobin 8.5 g/dL (12.0-15.0); Immature Granulocyte Absolute 0.02 K/mm3 (0.00-0.031); Immature Granulocyte Percent A 0.4 % (0-0.5); Lymphocytes Absolute Auto 1.81 K/mm3 (0.9-3.2); Lymphocytes Percent Auto 32.1 % (18.3-44.2); Mean Corpuscular HGB Conc 31.8 g/dl (32-36); Mean Corpuscular Hemoglobin 30.1 pg (26-34); Mean Corpuscular Volume 94.7 fl (80-100); Mean Platelet Volume 9.5 fl (7.4-10.4); Monocytes Absolute Auto 0.5 K/mm3 (0.1-0.6); Monocytes Percent Auto 9.4 % (2.6-8.5); Neutrophils Absolute Auto 3.2 K/mm3 (1.3-6.7); Neutrophils Percent Auto 56.1 % (45.5-73.1); Platelet Count Result 326 k/mm3 (150-375); Red Blood Count 2.82 M/mm3 (4.2-5.4); Red Cell Distribution Width 15.6 % (11.5-14.5); White Blood Count 5.6 K/mm3 (4.5-10.0)
[2021-04-14 05:52] LABS: Alanine Aminotransferase 15 U/L (4-35); Albumin Level 3.1 g/dL (3.5-5.1); Alkaline Phosphatase 52 U/L (38-126); Anion Gap 4 mmol/L (8-16); Aspartate Amino Transferase 22 U/L (14-36); Bilirubin,Total 0.7 mg/dL (0.2-1.3); Blood Urea Nitrogen 12 mg/dL (7-17); Calcium 8.2 mg/dL (8.4-10.2); Carbon Dioxide 29 mmol/L (22-30); Chloride 108 mmol/L (98-107); Estimated CRCL calculation 42 ml/min; Estimated Glomerular Filt Rate > 60; Glucose 94 mg/dL (65-110); Potassium 3.9 mmol/L (3.4-5.0); Sodium 141 mmol/L (137-145)
[2021-04-14 06:28] LABS: Iron 24 ug/dL (37-170)
[2021-04-14 06:37] LABS: Percent Iron Saturation 8 % (20-50)
[2021-04-14 06:55] LABS: Folic Acid > 20.0 ng/mL (2.76->20)
[2021-04-14] MEDS: PANTOPRAZOLE SODIUM IV 40 MG VIAL IV PUSH ×2 (07:41→20:36)
--- NOTE | 2021-04-14 10:01 | PM.IMPN ---
Progress Note: A&P Additional Plan START OF DOCTOR MINGO?S PROGRESS NOTE Subjective: The patient endorses no complaints at this time. She states that the dizziness that she is experiencing upon hospitalization has resolved. Overnight she was here, nausea, rigors, vomiting, cough, wheeze, abdominal pain, chest pain, dyspnea, lightheadedness, dizziness, or any other concerns or complaints. I have explained to the patient her current medical condition plan of care and I have answered all her questions Objective: General: -Alert -No acute distress -No dyspnea -No tachypnea Heart: -Regular rate -Regular rhythm -No murmurs -No gallops -No rubs Lungs: -No wheeze -No rhonchi -No rales Abdomen: -Normal bowel sounds in all four quadrants -No rebound -No guarding -No tenderness Extremities: -2/4 pulse in all four extremities -No clubbing -No cyanosis -No edema Additional Details / Additional Findings / Exceptions / Miscellaneous: Pertinent Laboratory Results / Pertinent Radiology Results / Pertinent Diagnostic Results / Pertinent Vital Signs: Vital signs stable. Hemoglobin 8.5 Assessment / Plan: Melena. Protonix 40 mg IV q.12 hours. Gastroenterology consult pending. Will monitor hemoglobin closely Iron deficiency anemia. Monitor hemoglobin closely. Ferrous sulfate 325 mg p.o. b.i.d. plus vitamin-C 500 mg p.o. daily GERD. Protonix 40 mg IV q.12 hours Hyperlipidemia. Lipitor 20 mg p.o. q.h.s. Osteopenia 4 mm pulmonary mass. Radiology report does not indicate which side. I requested pulmonology evaluate the patient. I will have the patient repeat CT chest with IV contrast 3 months post discharge for reassessment or according to pulmonology as findings recommendations 3.2 cm left retroperitoneal soft tissue density. I will request that surgery evaluate the patient DVT prophylaxis. Bilateral [place] Disposition: Anticipate discharge within 24 hours on April 15, 2021 if the patient's hemoglobin remained stable END OF DOCTOR MINGO?S PROGRESS NOTE Subjective Date/time seen: 04/14/21 10:01 Objective Data Vital Signs Vital Signs: Vital Signs - 24 hr 04/13/21 10:13 04/13/21 11:43 04/13/21 12:16 Temperature 98.0 F Pulse Rate 84 83 75 Respiratory Rate 20 18 Blood Pressure 156/84 H 127/61 Pulse Oximetry 100 100 04/13/21 13:01 04/13/21 15:47 04/13/21 15:48 Temperature Pulse Rate 73 75 89 Respiratory Rate 18 18 Blood Pressure 137/66 137/57 L 127/71 Pulse Oximetry 100 97 04/13/21 18:00 04/13/21 20:00 04/13/21 20:17 Temperature 98.3 F 97.5 F L 97.6 F Pulse Rate 94 78 73 Respiratory Rate 16 18 18 Blood Pressure 145/72 H 133/59 L 133/59 L Pulse Oximetry 99 98 98 04/14/21 00:00 04/14/21 04:00 04/14/21 04:38 Temperature 98.4 F 98.2 F 98.2 F Pulse Rate 70 66 66 Respiratory Rate 20 18 18 Blood Pressure 100/58 L 100/56 L 100/56 L Pulse Oximetry 98 98 98 04/14/21 07:30 04/14/21 08:00 Temperature 97.4 F L 97.9 F Pulse Rate 66 68 Respiratory Rate 18 16 Blood Pressure 123/53 L 123/53 L Pulse Oximetry 99 100 Intake/Output Intake/Output: Intake & Output 04/11/21 04/12/21 04/13/21 04/14/21 23:59 23:59 23:59 23:59 Intake Total 900 200 Output Total 925 Balance 900 -725 Meds/Results Medications: Active Medications Generic Name Dose Route Start Last Admin Trade Name Freq PRN Reason Stop Dose Admin Ascorbic Acid 500 mg 04/15/21 09:00 Ascorbic Acid 500 Mg Tablet PO DAILY [facility] Atorvastatin Calcium 20 mg 04/14/21 10:00 Atorvastatin 20 Mg Tablet PO DAILY [facility] Estradiol 0.5 mg 04/15/21 09:00 Estradiol 0.5 Mg Tablet PO DAILY RYANN Ferrous Sulfate 324 mg 04/14/21 17:00 Ferrous Sulfate 324 Mg Tablet PO BIDWM RYANN Acetaminophen 650 mg in 65 mls @ 260 mls/hr 04/13/21 16:30 Ofirmev 650 Mg Ivpb IVPB 04/14/21 16:29 Q6H PRN Mild Pain (1-3) or Fever Pantoprazole Sod
--- NOTE | 2021-04-14 10:06 | WPDGICN ---
Assessment and Plan Assessment and plan (1) Acute blood loss anemia: Code(s): D62 - Acute posthemorrhagic anemia Status: Acute Assessment and Plan: here with ongoing gib for almost 2 weeks and noted abnormal mass possible in stomach- ? tumor, GIST, etc egd today to assess, also differential include ulcers, etc transfuse if hb below 7 (2) Melena: Code(s): K92.1 - Melena Status: Acute Assessment and Plan: urgent egd protonix iv bid more recommendations after egd (3) Abnormal CT scan, stomach: Code(s): R93.3 - Abnormal findings on diagnostic imaging of other parts of digestive tract Status: Acute Assessment and Plan: egd (4) Heme positive stool: Code(s): R19.5 - Other fecal abnormalities Status: Acute (5) Pulmonary nodule: Code(s): R91.1 - Solitary pulmonary nodule Status: Acute Assessment and Plan: pulmonary on board GI Consult Note Consult date/time: 04/14/21 10:06 Reason for consult: melena HPI: Sara Sprarow is a 80 year old female who is quite healthy for her age, history of GERD who used ppi in the past who came to the emergency department via private vehicle from home for evaluation of dyspnea on exertion and dizziness that has been going on for 2-3 weeks. Normally she walks her dog 2 to 3 miles each day but lately she has been struggling and getting more tired and short of breath then usual, also noted dark stools for the same amount of time. Also had episodes of lightheadedness and dizziness. ER evaluation showed hemoglobin of 9.9, previous hemoglobin normal anywhere between 13.5 and 14.5. Her stool was also noted to be guaiac positive. She had CT of the abdomen and pelvis that was reviewed and showed a 3.2 x 4 cm left retroperitoneal soft tissue density,could be a diverticulum or mass of the posterior aspect of the stomach, including gastrointestinal stromal tumor, left adrenal mass, etc. She had 25 lb weight loss in the last 6 months but recently lost her . Review of Systems Constitutional: Constitutional: Reports fatigue Eyes: Eyes: Denies blurry vision ENT: Reports Normal hearing present Cardiovascular: Cardiovascular: Reports lightheadedness Respiratory: Respiratory: Denies cough and Reports dyspnea on exertion Gastrointestinal: Gastrointestinal: Reports melena Genitourinary: Genitourinary: Denies hematuria Musculoskeletal: Musculoskeletal: Denies neck pain Integumentary/Breasts: Skin/Breast: Denies dry skin Neurologic: Denies headache(s) Psychiatric: Psychiatric: Reports no additional psychiatric complaints PMF Past Medical History Medical History (Updated 04/14/21 @ 14:30 by Catracho Clay MD) Abnormal CT scan, stomach Acute blood loss anemia Gastroesophageal reflux disease Hypercholesterolemia Melena Osteopenia Thyroglossal duct cyst Surgical History Surgical History (Updated 04/13/21 @ 23:30 by Tabby Dill PA-C) History of bilateral salpingo-oophorectomy (07/2002) At the time of an exploratory laparotomy done for a pelvic mass, found to have a benign growth on the right ovary, reportedly a cyst adenofibroma. History of colonoscopy (11/2008) Internal hemorrhoids. History of exploratory laparotomy (07/2002) History of hysterectomy for benign disease History of tonsillectomy (1955) Family History Family History Mother Family history of elevated blood lipids, Onset Age: 95 Thyroid disorder Father Family history of lymphoma Sibling Thyroid disorder Social History Social History (Updated 04/13/21 @ 23:32 by Tabby Dill PA-C) Social History: Surrogate decision maker: Vanessa Tidwell, sister. Code status: Full code. Smoking packs per day: 0.25 Smoking cigarettes per day: 5.0 Years smoked: 2 Smoking pack-years: 0.50 Smoking status: Former smoker Tobacco type: c
[2021-04-14] MEDS: LACTATED RINGERS 1,000 ML 150 ML IV CONT ×2 (10:59→13:19)
[2021-04-14 11:01] LABS: Hemoglobin 8.9 g/dL (12.0-15.0)
--- NOTE | 2021-04-14 12:12 | PM.CNPUL ---
Assessment and Plan Assessment and plan (1) Pulmonary nodule: Code(s): R91.1 - Solitary pulmonary nodule Status: Acute Assessment and Plan: 80-year-old female with shortness of breath, anemia, weight loss, a retroperitoneal soft tissue density measuring 3.2 x [address], and an incidental small nodule measuring 4 mm in the right mid lobe. The patient is a non smoker, and given the size of the nodule, she is at low risk for lung malignancy. We will repeat the chest CT in 6 months and re-evaluate the patient in the outpatient Pulmonary Clinic. 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 This CT mosaic pattern was also present on a previous CT done in December of 2020. Most common causes for this particular CT abnormality include airway disease such as bronchiolitis and also pulmonary hypertension. Patient has no history compatible with airway dysfunction. In view of a prominent pulmonary artery on CT, this could be due to pulmonary HTN. I would suggest a 2D echo to exclude pulmonary hypertension. History of Present Illness History of Present Illness Consult date: 04/14/21 Reason for consult: other (Lung nodule) Chief complaint: gi bleed,anemia,lung mass,retroperitoneal mass,dys Narrative: this 80-year-old female presented with progressively increasing shortness of breath on exertion and dizziness. Patient stated that she has developed shortness of breath primarily on exertion. She usually walks her dog about 2 to 3 miles each day. Over the last several weeks, she noticed some shortness of breath with waling and some dizziness. The shortness of breath on exertion was not associated with other symptoms such as chest pain palpitations, orthopnea, hemoptysis, night sweats, or wheezing. On initial workup, she was found to have anemia with a hemoglobin of 9.9. In addition CT of the abdomen and pelvis showed a 3.2 x 4 cm left retroperitoneal soft tissue density for which she is having further workup. In addition, the patient underwent chest CT with IV contrast for shortness of breath. The chest CT showed a small nodule measuring about 4 mm in the right mid lobe and mosaic pattern bilaterally. The patient never had history of previous respiratory disease; she is a nonsmoker. She has lost weight of approximately 15 lb over the last 6 months, especially after the loss of her in September of 2020. Review of Systems Review of Systems: The patient reports weight loss of 15 lb over the last 6 months. she has no history of cough or wheezing. she has no orthopnea or palpitations. She was recently diagnosed with thyroglossal cyst for which she is contemplating surgery. She has no dysphagia or acid reflux disease. She denied having abdominal pain nausea vomiting or diarrhea. She has no urinary complaints. She denied having any joint pain or arthritis. She has no history of lower extremity edema. The remainder of the 12 point system review is negative. FORMERLY [facility], [facility] Past Medical History Medical History (Updated 04/14/21 @ 12:21 by Major Cuellar MD) Gastroesophageal reflux disease Hypercholesterolemia Osteopenia Thyroglossal duct cyst Surgical History Surgical History (Updated 04/13/21 @ 23:30 by Tabby Dill PA-C) History of bilateral salpingo-oophorectomy (07/2002) At the time o
--- NOTE | 2021-04-14 13:15 | WPDANESEPPF ---
Anes - Initial Pre Proc Eval Procedure: Operation Date: 04/14/21 16:00 Proposed Procedures p Esophagogastroduodenoscopy - Catracho Clay MD Date/Time: 04/14/21 13:15 Surgeon: Klaus Palafox MD Pre Op Diagnosis: gi bleed,anemia,lung mass,retroperitoneal mass,dys Patient Data Age: 80 Gender: F Height: 1.63 m Weight: 64.5 kg Last Vital Signs Temp 36.6 C 04/14/21 12:19 Pulse 66 04/14/21 12:19 Resp 20 04/14/21 12:19 BP 120/58 L 04/14/21 12:19 Pulse Ox 100 04/14/21 12:19 Allergies Allergy/AdvReac Type Severity Reaction Status Date / Time Sulfa (Sulfonamide Allergy Unknown caused Verified 01/14/21 14:54 Antibiotics) kidney infection 60 years ago. Home Medications Medication Instructions Recorded Confirmed Type atorvastatin 20 mg PO DAILY 04/13/21 04/13/21 History estradiol 0.5 mg PO DAILY 04/13/21 04/13/21 History Laboratory Tests 04/13/21 04/13/21 04/14/21 18:03 22:43 05:15 WBC RBC Hgb 10.2 g/dL L g/dL 8.5 g/dL L g/dL (12.0-15.0) (12.0-15.0) Hct 31.8 % L % 26.0 % L % (37.0-47.0) (37.0-47.0) MCV MCH MCHC RDW Plt Count MPV Immature Gran % (Auto) Neut % (Auto) Lymph % (Auto) Warrick % (Auto) Eos % (Auto) Baso % (Auto) Lymph # (Auto) Warrick # (Auto) Eos # (Auto) Baso # (Auto) Abs Immat Gran (auto) Absolute Neuts (auto) Absolute Nucleated RBC Nucleated RBC % Sodium Potassium Chloride Carbon Dioxide Anion Gap BUN Creatinine Estim Creat Clear Calc Estimated GFR Glucose Calcium Magnesium Iron 24 ug/dL L ug/dL (37-170) TIBC 305 ug/dL ug/dL (261-462) % Saturation 8 % L % (20-50) Ferritin 16.00 ng/mL ng/mL (11.1-264) Total Bilirubin AST ALT Alkaline Phosphatase Total Protein Albumin Vitamin B12 Folate 04/14/21 04/14/21 04/14/21 05:15 05:15 10:46 WBC 5.6 K/mm3 K/mm3 (4.5-10.0) RBC 2.82 M/mm3 L M/mm3 (4.2-5.4) Hgb 8.5 g/dL L g/dL 8.9 g/dL L g/dL (12.0-15.0) (12.0-15.0) Hct 26.7 % L % 28.0 % L % (37.0-47.0) (37.0-47.0) MCV 94.7 fl fl (80-100) MCH 30.1 pg pg (26-34) MCHC 31.8 g/dl L g/dl (32-36) RDW 15.6 % H % (11.5-14.5) Plt Count 326 k/mm3 k/mm3 (150-375) MPV 9.5 fl fl (7.4-10.4) Immature Gran % (Auto) 0.4 % % (0-0.5) Neut % (Auto) 56.1 % % (45.5-73.1) Lymph % (Auto) 32.1 % % (18.3-44.2) Warrick % (Auto) 9.4 % H % (2.6-8.5) Eos % (Auto) 1.6 % % (0-4.4) Baso % (Auto) 0.4 % % (0.2-1.2) Lymph # (Auto) 1.81 K/mm3 K/mm3 (0.9-3.2) Warrick # (Auto) 0.5 K/mm3 K/mm3 (0.1-0.6) Eos # (Auto) 0.1 K/mm3 K/mm3 (0-0.3) Baso # (Auto) 0.0 K/mm3 K/mm3 (0.0-0.1) Abs Immat Gran (auto) 0.02 K/mm3 K/mm3 (0.00-0.031) Absolute Neuts (auto) 3.2 K/mm3 K/mm3 (1.3-6.7) Absolute Nucleated RBC 0.0 K/mm3 K/mm3 (0.0-0.012) Nucleated RBC % 0.0 % % (0.0-0.2) Sodium 141 mmol/L mmol/L (137-145) Potassium 3.9 mmol/L mmol/L (3.4-5.0) Chloride 108 mmol/L H mmol/L (98-107) Carbon Dioxide 29 mmol/L mmol/L (22-30) Anion Gap 4 mmol/L L mmol/L (8-16) BUN 12 mg/dL mg/dL (7-17) Creatinine 0.80 mg/dL mg/dL (0.7-1.0) Estim Creat Clear Calc 42 ml/min ml/min
[2021-04-14] MEDS: FERROUS SULFATE 324 MG TABLET PO (17:19)
[2021-04-14] MEDS: estradioL 0.5 MG TABLET PO (17:20)
[2021-04-14] MEDS: ATORVASTATIN 20 MG TABLET PO (17:20)
--- NOTE | 2021-04-14 17:27 | PM.CNGS ---
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 Estrella. Although the CT scan of the abdomen with oral contrast is pending, I have reviewed the CTA of the chest as well. The retroperitoneal mass noted on chest CT is undoubtedly the posterior gastric mass noted on EGD today. It is also the source of her anemia and GI bleeding. I discussed this with the patient. Differential includes leiomyoma, leiomyosarcoma and GIST tumor. 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 Mass measured 4.5 cm at EGD and if this holds up on the pathologic evaluation, it would likely be a very treatable neoplasm. I have recommended and the patient agrees to proceed with partial gastric resection of the submucosal tumor tomorrow in the operating room under general anesthesia. I will plan to do this laparoscopically although we may possibly need to convert to open surgery depending on the operative findings. The procedure the risks the benefits have been discussed. Possibility of blood transfusion was discussed. 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 All questions were answered. She understands and agrees to go ahead. (2) Upper gastrointestinal bleeding: Code(s): K92.2 - Gastrointestinal hemorrhage, unspecified Status: Acute Assessment and Plan: No transfusions as yet. Source of bleeding very likely to be the submucosal mass with ulceration and stigmata of bleeding noted on EGD today. Plan resection as noted above. History of Present Illness Consult details Consult date: 04/14/21 Reason for consult: other ( submucosal gastric tumor with bleeding) Requesting physician: Bacilio Harris DO Narrative: patient is an 80-year-old woman who is normally quite active. However she has lost weight and has noticed dyspnea on exertion with easy fatigability over the last few weeks. She also has experienced dizziness. She came to the emergency room yesterday and evaluation there found her to be anemic with hemoglobin of 9.9 and hematocrit 31.1. Her previous H&H in December of 2020 was 14.3 and 44.3. She was noted to have guaiac-positive stools. CTA of the chest was performed. she was noted to have a 4 cm soft tissue density in the retroperitoneal posterior to the upper body of the stomach. The differential on this nodule was extensive. Dr. Estrella saw the patient in consultation and today performed an EGD. 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 There was ulceration of the mass with evidence of this as a bleeding source. I was asked to see the patient in consultation regarding this submucosal tumor. Patient has had no dyspeptic symptoms or problems eating but did lose some weight. She relates this to chronic illness and of her which occurred in September of 2020. Review of Systems Review of Systems: All systems reviewed & are unremarkable except as noted in HPI and below Constitutional: Constitutional: Denies chills and Denies fever(s) ENT: Comments: Known to have thyroglossal duct cyst with plans for elective surgery in the future. Cardiovascular: Cardiovascular: Denies chest pain, Denies chest pain with activity, Denies diaphoresis, Reports dyspnea on exertion and Denies paroxysmal nocturnal dyspnea Respiratory: Respiratory: Denies chest congestion, Denies cough, Denies hemoptysis, Denies excessive phlegm production and Reports dyspnea on exertion Integumentary/Breasts: Skin/Breast: Denies lesions and Denies rash Neurologic: Reports dizziness, Denies syncope, Denies frequent falls, Denies focal weakness, Denies seizure-like activity, Denies Sensory deficit (Neuro) and Repo
[2021-04-14] MEDS: KCL 20 MEQ/D5/0.45% SOD CHL 1,000 ML 80 ML IV CONT (18:32)
[2021-04-14] MEDS: ENOXAPARIN 30 MG/0.3 ML SYRINGE SUB-Q (20:32)
[2021-04-15] VITALS (17 sets, daily range): BP systolic 100–141; BP diastolic 45–64; PULSE 68–94; RESP 14–20; TEMP 35.6–36.9; O2SAT 89–100
[2021-04-15 05:36] LABS: Hematocrit 26.1 % (37.0-47.0); Hemoglobin 8.1 g/dL (12.0-15.0); Mean Corpuscular Hemoglobin 29.3 pg (26-34); Mean Corpuscular Volume 94.6 fl (80-100); Mean Platelet Volume 9.7 fl (7.4-10.4); Platelet Count Result 338 k/mm3 (150-375); Red Blood Count 2.76 M/mm3 (4.2-5.4); Red Cell Distribution Width 15.3 % (11.5-14.5); White Blood Count 5.5 K/mm3 (4.5-10.0)
[2021-04-15 05:49] LABS: Anion Gap 3 mmol/L (8-16); Blood Urea Nitrogen 12 mg/dL (7-17); Calcium 8.3 mg/dL (8.4-10.2); Carbon Dioxide 30 mmol/L (22-30); Chloride 107 mmol/L (98-107); Estimated CRCL calculation 42 ml/min; Estimated Glomerular Filt Rate > 60; Glucose 101 mg/dL (65-110); Potassium 4.1 mmol/L (3.4-5.0); Sodium 140 mmol/L (137-145)
[2021-04-15] MEDS: KCL 20 MEQ/D5/0.45% SOD CHL 1,000 ML 80 ML IV CONT (07:23)
[2021-04-15] MEDS: PANTOPRAZOLE SODIUM IV 40 MG VIAL IV PUSH (07:24)
--- NOTE | 2021-04-15 09:41 | WPDANESPN ---
Anes - Prog Note Post-Op Date/Time: 04/15/21 09:41 Cardiovascular status: normal Respiratory status: normal Airway patency: baseline Mental status: baseline Post-Op hydration status: normal Vital Signs: Last Vital Signs Temp 36.6 C 04/15/21 04:00 Pulse 76 04/15/21 04:00 Resp 18 04/15/21 04:00 BP 100/49 L 04/15/21 04:00 Pulse Ox 100 04/15/21 04:00 Pain Score (VAS): 0 I/O: Intake & Output 04/14/21 04/15/21 04/15/21 23:59 07:59 15:59 Intake Total 1190 Output Total 1400 1200 Balance -1400 -10 Laboratory Tests 04/15/21 05:11 04/15/21 05:11 04/14/21 04/14/21 04/15/21 10:46 18:06 05:11 WBC 5.5 RBC 2.76 L Hgb 8.9 L 8.1 L Hct 28.0 L 26.1 L MCV 94.6 MCH 29.3 MCHC 31.0 L RDW 15.3 H Plt Count 338 MPV 9.7 Sodium Potassium Chloride Carbon Dioxide Anion Gap BUN Creatinine Estim Creat Clear Calc Estimated GFR Glucose Calcium Blood Type B Negative Antibody Screen Negative 04/15/21 05:11 WBC RBC Hgb Hct MCV MCH MCHC RDW Plt Count MPV Sodium 140 Potassium 4.1 Chloride 107 Carbon Dioxide 30 Anion Gap 3 L BUN 12 Creatinine 0.80 Estim Creat Clear Calc 42 Estimated GFR > 60 Glucose 101 Calcium 8.3 L Blood Type Antibody Screen Post-procedural complaints: none Patient Feedback: Patient satisfied with anesthetic care.
--- NOTE | 2021-04-15 09:48 | PM.IMPN ---
Progress Note: A&P Additional Plan START OF DOCTOR MINGO?S PROGRESS NOTE Subjective: The patient's course has no complaints at this time. She denies fever, rigors, nausea, vomiting, cough, wheeze, abdominal pain, chest pain, dyspnea, or any other concerns or complaints. I explained to the patient her current medical condition plan of care and I have answered all her questions Objective: General: -Alert -No acute distress -No dyspnea -No tachypnea Heart: -Regular rate -Regular rhythm -No murmurs -No gallops -No rubs Lungs: -No wheeze -No rhonchi -No rales Abdomen: -Normal bowel sounds in all four quadrants -No rebound -No guarding -No tenderness Extremities: -2/4 pulse in all four extremities -No clubbing -No cyanosis -No edema Additional Details / Additional Findings / Exceptions / Miscellaneous: Pertinent Laboratory Results / Pertinent Radiology Results / Pertinent Diagnostic Results / Pertinent Vital Signs: Vital signs stable. Hemoglobin 8.1 Assessment / Plan: Melena. Protonix 40 mg IV q.12 hours. Appreciate Gastroenterology evaluate the patient. 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 Appreciate surgery evaluate the patient. Surgical intervention pending. IV lactated Ringer's at 30 mL/hour. Will monitor hemoglobin closely Iron deficiency anemia. Monitor hemoglobin closely. Ferrous sulfate 325 mg p.o. b.i.d. plus vitamin-C 500 mg p.o. daily GERD. Protonix 40 mg IV q.12 hours Hyperlipidemia. Lipitor 20 mg p.o. q.h.s. Osteopenia 4 mm pulmonary mass. Radiology report does not indicate which side. Appreciate pulmonology evaluated the patient. I will have the patient repeat CT chest with IV contrast 3 months post discharge for reassessment or according to pulmonology as findings recommendations 3.2 cm left retroperitoneal soft tissue density. I will request that surgery evaluate the patient DVT prophylaxis. Lovenox 30 mg subcutaneously daily Disposition: END OF DOCTOR MINGO?S PROGRESS NOTE Subjective Date/time seen: 04/15/21 09:48 Objective Data Vital Signs Vital Signs: Vital Signs - 24 hr 04/14/21 12:19 04/14/21 13:15 04/14/21 14:18 Temperature 97.9 F 97.1 F L Pulse Rate 66 73 75 Respiratory Rate 20 20 20 Blood Pressure 120/58 L 125/56 L 106/54 L Pulse Oximetry 100 100 93 04/14/21 14:28 04/14/21 14:38 04/14/21 15:19 Temperature 97.9 F Pulse Rate 71 75 67 Respiratory Rate 20 23 H 18 Blood Pressure 110/59 L 122/59 L 140/67 Pulse Oximetry 94 96 100 04/14/21 20:00 04/15/21 00:00 04/15/21 04:00 Temperature 97.1 F L 97.8 F 98 F Pulse Rate 75 68 76 Respiratory Rate 18 20 18 Blood Pressure 101/46 L 100/46 L 100/49 L Pulse Oximetry 96 98 100 Intake/Output Intake/Output: Intake & Output 04/12/21 04/13/21 04/14/21 04/15/21 23:59 23:59 23:59 23:59 Intake Total 900 1550 1190 Output Total 2325 1200 Balance 900 -775 -10 Meds/Results Medications: Active Medications Generic Name Dose Route Start Last Admin Trade Name Le PRN Reason Stop Dose Admin Ascorbic Acid 500 mg 04/15/21 09:00 Ascorbic Acid 500 Mg Tablet PO DAILY RYANN Atorvastatin Calcium 20 mg 04/14/21 10:00 04/14/21 17:20 Atorvastatin 20 Mg Tablet PO 20 mg DAILY RYANN Administration Enoxaparin Sodium 30 mg 04/14/21 21:00 04/15/21 09:27 Enoxaparin 30 Mg/0.3 Ml Syringe SUB-Q Not Given Q12HR RYANN Estradiol 0.5 mg 04/14/21 10:05 04/14/21 17:20 Estradiol 0.5 Mg Tablet PO 0.5 mg DAILY RYANN Administration Ferrous Sulfate 324 mg 04/14/21 17:00 04/14/21 17:19 Ferrous Sulfate 324 Mg Tablet PO 324 mg BIDWM RYANN Administration Potassium Chloride/Dextrose/Sod Cl 1,000 mls @ 80 mls/hr 04/14/21 17:25 04/15/21 07:23 Kcl 20 Meq/D5/0.45% Sod Chl IV CONT 80 mls/hr .[id number] RYANN Administration Lactated
--- NOTE | 2021-04-15 11:55 | PM.PNPUL ---
Progress Note: A&P Assessment and Plan (1) Pulmonary nodule: Code(s): R91.1 - Solitary pulmonary nodule Status: Acute Assessment and Plan: Patient without new respiratory symptoms. Will evaluate patient with a new chest CT regarding pulmonary nodule in approximately 6 months. I told patient to return to the outpatient pulmonary clinic for follow-up in about 6 months. (2) Abnormal CT of the chest: Code(s): R93.89 - Abnormal findings on diagnostic imaging of other specified body structures Status: Acute (3) Shortness of breath: Code(s): R06.02 - Shortness of breath Status: Acute Assessment and Plan: patient with anemia and shortness of breath related to gastric mass for which she is scheduled for surgery later on today. We will sign off as the patient has no acute respiratory problems. Subjective Date/time seen: 04/15/21 11:55 Patient has had no respiratory symptoms. She remains on room air. Review of Systems Review of Systems: All systems reviewed & are unremarkable except as noted in HPI and below (H & P) Exam Narrative: GENERAL APPEARANCE: Well developed, well nourished, alert and cooperative, and appears to be in no acute distress SKIN: Inspection of the skin reveals no rashes, ulcerations or petechiae. HEENT: Sclerae anicteric and conjunctivae pink and moist. Extraocular movements were intact and pupils were equal, round, and reactive to light. The oral mucosa, hard and soft palate, tongue and posterior pharynx were normal. NECK: Supple. Soft mass anteriorly in neck; no thyromegaly no lymphadenopathy CHEST: Normal AP diameter and normal contour without any kyphoscoliosis. LUNGS: Auscultation of the lungs revealed normal breath sounds without any other adventitious sounds or rubs. CARDIAC: There was a regular rate and rhythm without any murmurs, gallops, rubs. ABDOMEN: Soft and nontender with normal bowel sounds. There was no organomegaly. EXTREMITIES: No cyanosis, clubbing or edema. NEUROLOGIC: Alert and oriented x 3. Normal affect. Objective Data Vital Signs Vital Signs: Vital Signs - 24 hr 04/14/21 12:19 04/14/21 13:15 04/14/21 14:18 Temperature 36.6 C 36.2 C L Pulse Rate 66 73 75 Respiratory Rate 20 20 20 Blood Pressure 120/58 L 125/56 L 106/54 L Pulse Oximetry 100 100 93 04/14/21 14:28 04/14/21 14:38 04/14/21 15:19 Temperature 36.6 C Pulse Rate 71 75 67 Respiratory Rate 20 23 H 18 Blood Pressure 110/59 L 122/59 L 140/67 Pulse Oximetry 94 96 100 04/14/21 20:00 04/15/21 00:00 04/15/21 04:00 Temperature 36.2 C L 36.6 C 36.6 C Pulse Rate 75 68 76 Respiratory Rate 18 20 18 Blood Pressure 101/46 L 100/46 L 100/49 L Pulse Oximetry 96 98 100 04/15/21 10:30 Temperature 36.9 C Pulse Rate 72 Respiratory Rate 16 Blood Pressure 118/56 L Pulse Oximetry 99 Intake/Output Intake/Output: Intake & Output 04/12/21 04/13/21 04/14/21 04/15/21 23:59 23:59 23:59 23:59 Intake Total 900 1550 1190 Output Total 2325 1200 Balance 900 -695 -10 Meds/Results Medications: Active Medications Generic Name Dose Route Start Last Admin Trade Name Le PRN Reason Stop Dose Admin Ascorbic Acid 500 mg 04/15/21 09:00 Ascorbic Acid 500 Mg Tablet PO DAILY [facility] Atorvastatin Calcium 20 mg 04/14/21 10:00 04/14/21 17:20 Atorvastatin 20 Mg Tablet PO 20 mg DAILY RYANN Administration Enoxaparin Sodium 30 mg 04/14/21 21:00 04/15/21 09:27 Enoxaparin 30 Mg/0.3 Ml Syringe SUB-Q Not Given Q12HR RYANN Estradiol 0.5 mg 04/14/21 10:05 04/14/21 17:20 Estradiol 0.5 Mg Tablet PO 0.5 mg DAILY RYANN Administration Ferrous Sulfate 324 mg 04/14/21 17:00 04/14/21 17:19 Ferrous Sulfate 324 Mg Tablet PO 324 mg BIDWM RYANN Administration Potassium Chloride/Dextrose/Sod Cl 1,000 mls @ 80 mls/hr 04/14/21 17:25 04/15/21 07:23 Kcl 20 Meq/D5/0.45% Sod Chl IV CONT 80 mls/hr .[id number] RYANN Administration Lactated
--- NOTE | 2021-04-15 12:50 | PDONCCN ---
HPI - Date of Consult Date/Time: 04/15/21 12:50 Requesting Physician: Klaus Palafox MD Primary Care Provider: Arben Bautista MD - Consult Narrative Reason for consult: Gastric mass Narrative: Sara Sparrow is a 80 year old female who has been in good health except history of gastroesophageal reflux disease and hyperlipidemia came into the hospital with generalized weakness and shortness of breath with dyspnea on exertion. She was getting lightheaded and dizzy. Initial workup showed hemoglobin of 9.9. She denies any melena hematochezia. Denies any nausea vomiting and abdominal pain. 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 This measures about 7.5 x 4.6 cm in size. Liver spleen and adrenal glands were unremarkable. CTA chest showed 3.2 x 4 cm left retroperitoneal soft tissue density. No PE. She has no history of malignancy. Patient has lost almost 25 lb weight in last 6 months duration since her . Patient had EGD done that showed gastric mass. Review of Systems - Review of Systems All systems reviewed & are unremarkable except as noted in HPI and bel - Neurologic Reports hearing normal, Reports disequilibrium, Denies syncope, Denies frequent falls, Denies headache(s), Denies focal weakness, Denies seizure-like activity, Denies sensory deficit [facility] Medical History: Medical History (Last Reviewed 04/14/21 @ 17:36 by Maximiliano Jackson MD) Abnormal CT scan, stomach Acute blood loss anemia Gastroesophageal reflux disease Hypercholesterolemia Melena Osteopenia Thyroglossal duct cyst Surgical History: Surgical History (Last Reviewed 04/14/21 @ 17:36 by Maximiliano Jackson MD) History of bilateral salpingo-oophorectomy Onset Date: 07/2002 At the time of an exploratory laparotomy done for a pelvic mass, found to have a benign growth on the right ovary, reportedly a cyst adenofibroma. History of colonoscopy Onset Date: 11/2008 Internal hemorrhoids. History of exploratory laparotomy Onset Date: 07/2002 History of hysterectomy for benign disease History of tonsillectomy Onset Date: 1955 Family History: Family History (Last Reviewed 04/14/21 @ 17:36 by Maximiliano Jackson MD) Mother Family history of elevated blood lipids, Onset Age: 95 Thyroid disorder Father Family history of lymphoma Sibling Thyroid disorder - Social History Social History: Social History (Last Reviewed 04/14/21 @ 17:36 by Maximiliano Jackson MD) Alcohol Use: Alcohol intake: current Alcohol use details: Rare alcohol use in moderation. Substance Use: Substance use: never Others: Spiritual care concerns: No Smoking Status: Smoking status: Former smoker Tobacco type: cigarettes Second hand tobacco smoke exposure: No Smoking Pack-years: Smoking packs per day: 0.25 Smoking cigarettes per day: 5.0 Years smoked: 2 Smoking pack-years: 0.50 Meds Home Medications Medication Instructions Recorded Confirmed Type atorvastatin 20 mg PO DAILY 04/13/21 04/13/21 History estradiol 0.5 mg PO DAILY 04/13/21 04/13/21 History Allergies Allergy/AdvReac Type Severity Reaction Status Date / Time Sulfa (Sulfonamide Allergy Unknown caused Verified 01/14/21 14:54 Antibiotics) kidney infection 60 years ago. Results - Labs CBC & Chem 7: 04/15/21 05:11 04/15/21 05:11 Labs: Short CBC 04/15/21 Range/Units 05:11 WBC 5.5 (4.5-10.0) K/mm3 Hgb 8.1 L (12.0-15.0) g/dL Hct 26.1 L (37.0-47.0) % Plt Count 338 (150-375) k/mm3 BMP 04/15/21 05:11 Sodium 140 Potassium 4.1 Chloride 107 Carbon Dioxide 30 BUN 12 Creatinine 0.80 Glucose 101 Calcium 8.3 L Assessment and Plan - Additional Plan Gastric cardia mass measures 7.5 x 4.6 cm. Patient is a pleasant 80-year-old female presented with general
--- NOTE | 2021-04-15 13:57 | WPDANESEPPF ---
Anes - Initial Pre Proc Eval Procedure: Operation Date: 04/15/21 14:30 Proposed Procedures p Laparoscopic,Possible Open Repair Of Gastric Mass - Maximiliano Jackson MD Date/Time: 04/15/21 13:57 Surgeon: Klaus Palafox MD Pre Op Diagnosis: gi bleed,anemia,lung mass,retroperitoneal mass,dys Patient Data Age: 80 Gender: F Height: 1.63 m Weight: 67.5 kg Last Vital Signs Temp 36.9 C 04/15/21 10:30 Pulse 72 04/15/21 10:30 Resp 16 04/15/21 10:30 BP 118/56 L 04/15/21 10:30 Pulse Ox 99 04/15/21 10:30 Allergies Allergy/AdvReac Type Severity Reaction Status Date / Time Sulfa (Sulfonamide Allergy Unknown caused Verified 04/15/21 13:44 Antibiotics) kidney infection 60 years ago. Home Medications Medication Instructions Recorded Confirmed Type atorvastatin 20 mg PO DAILY 04/13/21 04/13/21 History estradiol 0.5 mg PO DAILY 04/13/21 04/13/21 History Laboratory Tests 04/14/21 04/15/21 04/15/21 18:06 05:11 05:11 WBC 5.5 K/mm3 K/mm3 (4.5-10.0) RBC 2.76 M/mm3 L M/mm3 (4.2-5.4) Hgb 8.1 g/dL L g/dL (12.0-15.0) Hct 26.1 % L % (37.0-47.0) MCV 94.6 fl fl (80-100) MCH 29.3 pg pg (26-34) MCHC 31.0 g/dl L g/dl (32-36) RDW 15.3 % H % (11.5-14.5) Plt Count 338 k/mm3 k/mm3 (150-375) MPV 9.7 fl fl (7.4-10.4) Sodium 140 mmol/L mmol/L (137-145) Potassium 4.1 mmol/L mmol/L (3.4-5.0) Chloride 107 mmol/L mmol/L (98-107) Carbon Dioxide 30 mmol/L mmol/L (22-30) Anion Gap 3 mmol/L L mmol/L (8-16) BUN 12 mg/dL mg/dL (7-17) Creatinine 0.80 mg/dL mg/dL (0.7-1.0) Estim Creat Clear Calc 42 ml/min ml/min Estimated GFR > 60 (59 - ) Glucose 101 mg/dL mg/dL (65-110) Calcium 8.3 mg/dL L mg/dL (8.4-10.2) Blood Type B Negative Antibody Screen Negative Patient hx anesthesia problems: none Family hx anesthesia problems: none Results Review: All pre-operative results and documents have been reviewed as part of the pre-operative evaluation. [facility] Past Medical History Medical History (Updated 04/15/21 @ 14:42 by Khalif De León DO) Abnormal CT scan, stomach Acute blood loss anemia Gastroesophageal reflux disease Hypercholesterolemia Melena Osteopenia Pulmonary nodules Thyroglossal duct cyst Surgical History Surgical History (Updated 04/15/21 @ 12:54 by Bebo Malloy MD) History of bilateral salpingo-oophorectomy (07/2002) At the time of an exploratory laparotomy done for a pelvic mass, found to have a benign growth on the right ovary, reportedly a cyst adenofibroma. History of colonoscopy (11/2008) Internal hemorrhoids. History of exploratory laparotomy (07/2002) History of hysterectomy for benign disease History of tonsillectomy (1955) Family History Family History Mother Family history of elevated blood lipids, Onset Age: 95 Thyroid disorder Father Family history of lymphoma Sibling Thyroid disorder Social History Social History Social History: Surrogate decision maker: Vanessa Tidwell, sister. Code status: Full code. Smoking packs per day: 0.25 Smoking cigarettes per day: 5.0 Years smoked: 2 Smoking pack-years: 0.50 Smoking status: Former smoker Tobacco type: cigarettes Second hand tobacco smoke exposure: No Alcohol intake: current Alcohol use details: Rare alcohol use in moderation. Substance use: never Additional living arrangements comments: as of September 2020. Lives in her own home in [place] with her 10-year-old [place] named Shanelle. No children. 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
--- NOTE | 2021-04-15 15:05 | WPDHPUPDATE1 ---
History and Physical Update Update Date/Time: 04/15/21 15:05 History and Physical has been reviewed, including an updated exam of the patient. There are NO changes in the patient's condition. Risks, benefits, and alternatives have been discussed and questions answered. Patient agrees to proceed with procedure.
[2021-04-15] MEDS: ceFAZolin 2 GM/D5W 50 ML 2 GM/50 ML BAG IVPB (15:27)
[2021-04-15] MEDS: LIDO 1%/EPINEPHRINE 1:100,000 50 ML VIAL INFILTRATE (16:09)
--- NOTE | 2021-04-15 16:25 | WPDGIPROGNO ---
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, pending biopsies will have surgery to remove tumor and oncology on board (2) Melena: Code(s): K92.1 - Melena Status: Acute Assessment and Plan: from large gastric mass continue with iv protonix bid monitor for more signs of bleeding (3) Abnormal CT scan, stomach: Code(s): R93.3 - Abnormal findings on diagnostic imaging of other parts of digestive tract Status: Acute Assessment and Plan: oncology and surgery on board (4) Acute blood loss anemia: Code(s): D62 - Acute posthemorrhagic anemia Status: Acute Subjective Date/time seen: 04/15/21 16:25 Interval history: no more report of obvious bleeding, discuss with her findings from EGD yesterday and will have surgery Review of Systems Review of Systems: All systems reviewed & are unremarkable except as noted in HPI and below Exam Const: General: comfortable and no acute distress HENMT: General nose exam: Normal nares present Eyes: General: appearance normal, both eyes and all related structures Neck: Neck: no JVD Resp: Auscultation: clear to auscultation bilaterally Cardio: Rate: regular rate Rhythm: regular rhythm GI: Inspection: non-distended GI Palp: Yes Soft to palpation and No Guarding due to palpation present (GI) Auscultation: normal bowel sounds Skin: General skin exam: normal color Neuro: Speech: normal speech Extrem: General: normal to inspection Psych: Mental Status: mental status grossly normal Objective Data Vital Signs Vital Signs: Vital Signs - 24 hr 04/14/21 20:00 04/15/21 00:00 04/15/21 04:00 Temperature 97.1 F L 97.8 F 98 F Pulse Rate 75 68 76 Respiratory Rate 18 20 18 Blood Pressure 101/46 L 100/46 L 100/49 L Pulse Oximetry 96 98 100 04/15/21 10:30 04/15/21 13:57 Temperature 98.4 F 98.1 F Pulse Rate 72 82 Respiratory Rate 16 Blood Pressure 118/56 L 141/64 H Pulse Oximetry 99 100 Intake/Output Intake/Output: Intake & Output 04/12/21 04/13/21 04/14/21 04/15/21 23:59 23:59 23:59 23:59 Intake Total 900 1550 1190 Output Total 1557 8557 Balance 900 -775 -10 Meds/Results Medications: Active Medications Generic Name Dose Route Start Last Admin Trade Name Le PRN Reason Stop Dose Admin Ascorbic Acid 500 mg 04/15/21 09:00 Ascorbic Acid 500 Mg Tablet PO DAILY [facility] Atorvastatin Calcium 20 mg 04/14/21 10:00 04/14/21 17:20 Atorvastatin 20 Mg Tablet PO 20 mg DAILY RYANN Administration Enoxaparin Sodium 30 mg 04/14/21 21:00 04/15/21 09:27 Enoxaparin 30 Mg/0.3 Ml Syringe SUB-Q Not Given Q12HR RYANN Estradiol 0.5 mg 04/14/21 10:05 04/14/21 17:20 Estradiol 0.5 Mg Tablet PO 0.5 mg DAILY RYANN Administration Ferrous Sulfate 324 mg 04/14/21 17:00 04/14/21 17:19 Ferrous Sulfate 324 Mg Tablet PO 324 mg BIDWM RYANN Administration Potassium Chloride/Dextrose/Sod Cl 1,000 mls @ 80 mls/hr 04/14/21 17:25 04/15/21 07:23 Kcl 20 Meq/D5/0.45% Sod Chl IV CONT 80 mls/hr .[id number] RYANN Administration Lactated Ringer's 1,000 mls @ 30 mls/hr 04/15/21 09:15 Lr - Lactated Ringers Iv IV CONT .Q24H RYANN Pantoprazole Sodium 40 mg 04/14/21 09:00 04/15/21 07:24 Pantoprazole Sodium Iv 40 Mg Vial IV PUSH 40 mg Q12HR RYANN Administration Radiology Results: ITS Impressions Chest X-Ray 04/13/21 10:35 IMPRESSION: Minimal discoid atelectasis in the right mid lung; no active cardiopulmonary disease Chest CTA 04/13/21 13:52 IMPRESSION: No evidence of pulmonary embolism 4 mm nonspecific middle lobe mass; six-month CT follow-up is recommended Mild discoid atelectasis or scarring of the middle lobe and lingula Mild patchy groundglass density of the lungs, possibly due to small ai
--- NOTE | 2021-04-15 17:42 | SUR.OPER ---
Spoke with Dr. Chawla prior to collecting specimen. Kisha to place specimen in formalin as long as introperative diagnosis is not needed at this time. Informed Dr. Jackson. No intraoperative diagnosis needed at this time per Dr. Jackson. Kisha to send specimen in formalin. Specimen collected, order placed, and acknowledged.
[2021-04-15] MEDS: LACTATED RINGERS 1,000 ML 30 ML IV CONT (18:15)
--- NOTE | 2021-04-15 18:31 | W.PM.PROC2 ---
Procedure Note - Detailed Date of Procedure 04/15/21 Pre-op Diagnosis Submucosal gastric neoplasm Post-op Diagnosis same Procedure Performed Laparoscopic resection submucosal gastric neoplasm Surgeon Maximiliano Jackson MD Automatic Paint Sprayer Operator Fiordaliza Franklin FNP Anesthesia general and local (1% LIDOCAINE WITH EPINEPHRINE) Indications Patient presented with dizziness and shortness of breath. She was found to be anemic. CT scan showed a retroperitoneal mass behind the stomach and just above the left kidney. EGD done yesterday showed a 4.5 cm submucosal gastric mass on the posterior aspect of the stomach near the gastroesophageal junction. This was ulcerated and showed signs that this was the source of bleeding. Patient is taken to surgery for partial gastric resection to remove the submucosal mass. Findings The submucosal portion of the mass was as described EGD. However there was an extension of the mass posterior off the back of the stomach make the overall length of the mass 9 cm. With was 6 cm in depth was 5 cm. It was in the posterior upper fundus near the cardia and was able to be resected with a good margin of normal stomach. Description of Procedure The patient was taken to surgery and induced into general anesthesia. The abdomen was prepped and draped. The varies needle was used and was introduced in the supraumbilical position. Saline drop technique was used and intraperitoneal location was verified. We insufflated through the varies needle until there was some distention of the abdomen. An applied Medical optical 5 mm port was then placed in this location. There were numerous anterior abdominal wall adhesions which were not expected. We were able to then place a right-sided upper abdominal port that went through the falciform ligament. With this port in place, I was able to take down some of the left-sided upper abdominal adhesions. A 5 mm left subcostal port was then placed. Using this as the camera port some additional adhesions were able to be taken down. These adhesions were taken down with the LigaSure. I then placed a right upper abdominal 5 mm port. Most of the adhesions were in the midline and to the patient's right. We then proceeded to take down all these adhesions. No evidence of bowel injury was noted. There was still some lower abdominal adhesions of omentum. No bowel was adherent to the anterior abdominal wall in the upper abdomen. We placed a 12 mm port in the right subcostal position. From there, we position the camera in the midline supraumbilical port. The liver retractor was passed through the right subcostal port and used to retract the lateral segment of the left lobe of the liver. We then exposed the greater curvature of the stomach and took down the greater omentum from the greater curve of the stomach. This was done with the LigaSure and was largely bloodless. We continued our dissection up to the area of the cardia of the stomach. From there we were able to see a very large portion of the tumor which was growing through the back wall of the stomach. There were no peritoneal implants or signs of metastatic disease seen throughout the surgery. From there, we turned our attention to the gastrohepatic ligament and divided this. We dissected up to the area of the right roly. We dissected above and below the esophagus identifying it clearly. I dissected a bit over to the left side of the esophagus as well. With the esophagus and gastroesophageal junction well identified, we went back to the area of the sub mucosal neoplasm. I changed out the 5 mm left subcostal port for a 10 11 port. The right upper abdominal 5 mm port was changed out for a 12 mm port. Using atraumatic graspers, we continued our dissection of the stomach. This included dissecting the posterior stomach from any adhesions to the retroperitoneum. We also continued our dissection of the cardia of the stomach largely freeing it so that the
--- NOTE | 2021-04-15 21:08 | PCDIET ---
1944 patient returned from pacu awake and alert, drowsy.
[2021-04-15] MEDS: FAMOTIDINE 20 MG/2 ML VIAL IV PUSH (23:32)
[2021-04-16 00:17] VITALS: BP 101/44; PULSE 82; RESP 20; TEMP 36.2; O2SAT 98
[2021-04-16] MEDS: KCL 20 MEQ/D5/0.45% SOD CHL 1,000 ML 80 ML IV CONT (02:46)
[2021-04-16 04:56] VITALS: BP 102/50; PULSE 77; RESP 18; TEMP 36.3; O2SAT 99
[2021-04-16 05:40] LABS: Hematocrit 25.6 % (37.0-47.0); Hemoglobin 8.2 g/dL (12.0-15.0); Mean Corpuscular Hemoglobin 30.3 pg (26-34); Mean Corpuscular Volume 94.5 fl (80-100); Mean Platelet Volume 9.7 fl (7.4-10.4); Platelet Count Result 326 k/mm3 (150-375); Red Blood Count 2.71 M/mm3 (4.2-5.4); Red Cell Distribution Width 14.8 % (11.5-14.5); White Blood Count 10.8 K/mm3 (4.5-10.0)
[2021-04-16 05:53] LABS: Anion Gap 7 mmol/L (8-16); Blood Urea Nitrogen 9 mg/dL (7-17); Calcium 8.1 mg/dL (8.4-10.2); Carbon Dioxide 24 mmol/L (22-30); Chloride 106 mmol/L (98-107); Estimated CRCL calculation 48 ml/min; Estimated Glomerular Filt Rate > 60; Glucose 148 mg/dL (65-110); Potassium 4.4 mmol/L (3.4-5.0); Sodium 137 mmol/L (137-145)
[2021-04-16] MEDS: ATORVASTATIN 20 MG TABLET PO (08:02)
[2021-04-16] MEDS: ENOXAPARIN 40 MG/0.4 ML SYRINGE SUB-Q (08:03)
[2021-04-16] MEDS: FAMOTIDINE 20 MG/2 ML VIAL IV PUSH (08:03)
[2021-04-16] MEDS: estradioL 0.5 MG TABLET PO (08:09)
--- NOTE | 2021-04-16 09:24 | PM.IMPN ---
Progress Note: A&P Additional Plan START OF DOCTOR MINGO?S PROGRESS NOTE Subjective: At the present time the patient endorses no complaints. She denies abdominal pain except for when she bears down to reposition herself. She tolerated breakfast this morning. Postoperatively the patient has not yet ambulated. Postoperatively the patient case that she has not yet had a bowel movement or flatus. Overnight she denies fever, rigors, nausea, vomiting, cough, wheeze, dyspnea, or any other concerns complaints. I have explained to the patient her current medical condition plan of care and I have answered all her questions Objective: General: -Alert -No acute distress -No dyspnea -No tachypnea Heart: -Regular rate -Regular rhythm -No murmurs -No gallops -No rubs Lungs: -No wheeze -No rhonchi -No rales Abdomen: -hypoactive bowel sounds in all four quadrants -No rebound -No guarding -No tenderness -laparoscopic incision sites look clean Extremities: -2/4 pulse in all four extremities -No clubbing -No cyanosis -No edema Additional Details / Additional Findings / Exceptions / Miscellaneous: Pertinent Laboratory Results / Pertinent Radiology Results / Pertinent Diagnostic Results / Pertinent Vital Signs: Patient saturating 99% 2 L, blood pressure 102/50, white blood cell count 10.8, hemoglobin 8.2 Assessment / Plan: Melena. Protonix 40 mg IV q.12 hours. Appreciate Gastroenterology evaluate the patient. 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 Appreciate surgery evaluate the patient. Patient status post April 15, 2021 general surgery: Laparoscopic resection submucosal gastric neoplasm. IV D5 half NS plus 20 mEq KCL at 80 mL/hour.. Will monitor hemoglobin closely Iron deficiency anemia. Monitor hemoglobin closely. Resume upon discharge: Ferrous sulfate 325 mg p.o. b.i.d. plus vitamin-C 500 mg p.o. daily GERD. Pepcid 20 mg IV q.12 hours Hyperlipidemia. Lipitor 20 mg p.o. q.h.s. Osteopenia 4 mm pulmonary mass. Radiology report does not indicate which side. Appreciate pulmonology evaluated the patient. I will have the patient repeat CT chest with IV contrast 3 months post discharge for reassessment or according to pulmonology as findings recommendations. Outpatient follow-up with pulmonology GI prophylaxis. Colace 100 mg p.o. b.i.d. plus 8.6 mg p.o. b.i.d. DVT prophylaxis. Lovenox 40 mg subcutaneously daily Disposition: Anticipate discharge in 24-48 hours END OF DOCTOR MINGO?S PROGRESS NOTE Subjective Date/time seen: 04/16/21 09:24 Objective Data Vital Signs Vital Signs: Vital Signs - 24 hr 04/15/21 10:30 04/15/21 13:57 04/15/21 18:15 Temperature 98.4 F 98.1 F 97.2 F L Pulse Rate 72 82 94 Respiratory Rate 16 16 Blood Pressure 118/56 L 141/64 H 133/60 Pulse Oximetry 99 100 100 04/15/21 18:30 04/15/21 18:45 04/15/21 19:00 Temperature Pulse Rate 81 76 72 Respiratory Rate 16 16 14 Blood Pressure 128/54 L 123/51 L 120/47 L Pulse Oximetry 100 100 100 04/15/21 19:12 04/15/21 19:15 04/15/21 19:30 Temperature Pulse Rate 72 72 Respiratory Rate 16 16 Blood Pressure 114/45 L 112/48 L Pulse Oximetry 89 L 100 100 04/15/21 19:59 04/15/21 20:00 04/15/21 20:04 Temperature 96.4 F L 96.4 F L Pulse Rate 71 74 Respiratory Rate 20 20 Blood Pressure 114/47 L 114/47 L Pulse Oximetry 100 97 100 04/15/21 20:22 04/15/21 21:14 04/15/21 22:53 Temperature 96.0 F L 96.6 F L Pulse Rate 74 84 81 Respiratory Rate 20 18 18 Blood Pressure 115/53 L 111/48 L Pulse Oximetry 100 99 98 04/16/21 00:17 04/16/21 04:56 Temperature 97.2 F L 97.3 F L Pulse Rate 82 77 Respiratory Rate 20 18 Blood Pressure 101/44 L 102/50 L Pulse Oximetry 98 99 Intake/Output Intake/Output: Intake & Output 04/13/21 04/14/21 04/15/21 04/16/21 23:59 23:59 23:
[2021-04-16 09:36] VITALS: PULSE 76; RESP 16; O2SAT 94
--- NOTE | 2021-04-16 09:46 | PM.PNGS ---
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 Patient tolerating clear liquids well. Will advance to full liquids. Increase ambulation. Start oral pain medication. If continues to do well, can probably go home on Monday. (2) Upper gastrointestinal bleeding: Code(s): K92.2 - Gastrointestinal hemorrhage, unspecified Status: Acute Assessment and Plan: Should no longer be a problem. Ulceration in the submucosal mass very likely the source of bleeding. (3) Acute blood loss anemia: Code(s): D62 - Acute posthemorrhagic anemia Status: Acute Assessment and Plan: May need to go home on iron. Subjective Subjective Date/Time Seen: 04/16/21 09:46 Post Op day: 1 Patient reports: no new complaints, tolerating liquids well, no flatus, no bowel movement and afebrile Interval history: Patient comfortable after her surgery last night. Was actually wanting to go home today. Pain is very mild. No nausea or vomiting. Exam Const: General: cooperative, comfortable, no acute distress, alert and awake; No confusion Nutritional Appearance: average body habitus Orientation/consciousness: patient oriented x3 and No confusion Resp: Effort & Inspection: normal respiratory effort Auscultation: clear to auscultation bilaterally Cardio: Rate: regular rate Rhythm: regular rhythm GI: Inspection: non-distended and incision ( Dry and healing well) GI Palp: Yes Soft to palpation, Yes Tenderness to palpation present (GI) ( mostly tender at extraction site, appropriate amount tenderness.), No Guarding due to palpation present (GI) and No Rebound tenderness present Auscultation: normal bowel sounds Neuro: General: patient oriented x3, no focal motor deficits and No confusion Extrem: General: no calf tenderness and no edema Psych: Affect: normal affect Insight: Good insight present (Psych) Judgement: Good judgement present (Psych) Objective Data Vital Signs Vital Signs: Vital Signs - 24 hr 04/15/21 10:30 04/15/21 13:57 04/15/21 18:15 Temperature 36.9 C 36.7 C 36.2 C L Pulse Rate 72 82 94 Respiratory Rate 16 16 Blood Pressure 118/56 L 141/64 H 133/60 Pulse Oximetry 99 100 100 04/15/21 18:30 04/15/21 18:45 04/15/21 19:00 Temperature Pulse Rate 81 76 72 Respiratory Rate 16 16 14 Blood Pressure 128/54 L 123/51 L 120/47 L Pulse Oximetry 100 100 100 04/15/21 19:12 04/15/21 19:15 04/15/21 19:30 Temperature Pulse Rate 72 72 Respiratory Rate 16 16 Blood Pressure 114/45 L 112/48 L Pulse Oximetry 89 L 100 100 04/15/21 19:59 04/15/21 20:00 04/15/21 20:04 Temperature 35.8 C L 35.8 C L Pulse Rate 71 74 Respiratory Rate 20 20 Blood Pressure 114/47 L 114/47 L Pulse Oximetry 100 97 100 04/15/21 20:22 04/15/21 21:14 04/15/21 22:53 Temperature 35.6 C L 35.9 C L Pulse Rate 74 84 81 Respiratory Rate 20 18 18 Blood Pressure 115/53 L 111/48 L Pulse Oximetry 100 99 98 04/16/21 00:17 04/16/21 04:56 04/16/21 09:36 Temperature 36.2 C L 36.3 C L Pulse Rate 82 77 76 Respiratory Rate 20 18 16 Blood Pressure 101/44 L 102/50 L Pulse Oximetry 98 99 94 Intake/Output Intake/Output: Intake & Output 04/13/21 04/14/21 04/15/21 04/16/21 23:59 23:59 23:59 23:59 Intake Total 900 1550 2290 660 Output Total 6385 2700 600 Balance 438 -251 -[phone] 60 Meds/Results Medications: Active Medications Generic Name Dose Route Start Last Admin Trade Name Freq PRN Reason Stop Dose Admin Atorvastatin Calcium 20 mg 04/14/21 10:00 04/16/21 08:02 Atorvastatin 20 Mg Tablet PO 20 mg DAILY RYANN Administration Enoxaparin Sodium 40 mg 04/16/21 09:00 04/16/21 08:03 Enoxaparin 40 Mg/0.4 Ml Syringe SUB-Q 40 mg HUI
--- NOTE | 2021-04-16 11:45 | PCNFU ---
Nutrition Follow-Up Complete: Altered GI function as related to GI bleed as evidenced by NPO Goal: Adequate Intake of at least 75% of meals/supplements Patient is progressing towards goal. We will continue current goal. Pt current nutrition is Full liquids. Last recorded weight is 67.5 kg, up from 64.5 kg on admit. Bowel Motility: NO BM reported. Labs Reviewed:Glu 148,Hct 25.6,Hgb 8.2 Meds Noted:Lipitor, Lovenox, Estrace. Additional Notes: Patient seen today for nutrition follow up. Tolerated clear liquid diet. Diet orders have advanced to full liquids for lunch. Recommend advancing diet as tolerated per MD orders. 04/15-laparoscopic resection. Agree with diet orders. Monitoring: Will monitor every 3 days.
[2021-04-16] MEDS: guaiFENesin/DEXTROMETHORPHAN 10 ML UDC PO (12:28)
--- NOTE | 2021-04-16 13:07 | WPDGIPROGNO ---
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 She is tolerating liquid diet. Review of Systems Review of Systems: All systems reviewed & are unremarkable except as noted in HPI and below Exam Const: General: cooperative, comfortable, no acute distress, alert and awake; No confusion Nutritional Appearance: average body habitus Orientation/consciousness: patient oriented x3 and No confusion HENMT: General nose exam: Normal nares present Eyes: General: appearance normal, both eyes and all related structures Neck: Neck: supple Resp: Effort & Inspection: normal respiratory effort Auscultation: clear to auscultation bilaterally Cardio: Rate: regular rate Rhythm: regular rhythm GI: Inspection: non-distended and incision ( Dry and healing well) GI Palp: Yes Soft to palpation, Yes Tenderness to palpation present (GI) ( mild, from surgery, no rebound), No Guarding due to palpation present (GI) and No Rebound tenderness present Auscultation: normal bowel sounds Skin: General skin exam: normal color Neuro: General: patient oriented x3, no focal motor deficits and No confusion Speech: normal speech Motor exam (neuro): Normal motor muscle tone present throughout Extrem: General: no calf tenderness and no edema Psych: Affect: normal affect Insight: Good insight present (Psych) Judgement: Good judgement present (Psych) Objective Data Vital Signs Vital Signs: Vital Signs - 24 hr 04/15/21 13:57 04/15/21 18:15 04/15/21 18:30 Temperature 98.1 F 97.2 F L Pulse Rate 82 94 81 Respiratory Rate 16 16 Blood Pressure 141/64 H 133/60 128/54 L Pulse Oximetry 100 100 100 04/15/21 18:45 04/15/21 19:00 04/15/21 19:12 Temperature Pulse Rate 76 72 Respiratory Rate 16 14 Blood Pressure 123/51 L 120/47 L Pulse Oximetry 100 100 89 L 04/15/21 19:15 04/15/21 19:30 04/15/21 19:59 Temperature 96.4 F L Pulse Rate 72 72 71 Respiratory Rate 16 16 20 Blood Pressure 114/45 L 112/48 L 114/47 L Pulse Oximetry 100 100 100 04/15/21 20:00 04/15/21 20:04 04/15/21 20:22 Temperature 96.4 F L Pulse Rate 74 74 Respiratory Rate 20 20 Blood Pressure 114/47 L Pulse Oximetry 97 100 100 04/15/21 21:14 04/15/21 22:53 04/16/21 00:17 Temperature 96.0 F L 96.6 F L 97.2 F L Pulse Rate 84 81 82 Respiratory Rate 18 18 20 Blood Pressure 115/53 L 111/48 L 101/44 L Pulse Oximetry 99 98 98 04/16/21 04:56 04/16/21 09:36 Temperature 97.3 F L Pulse Rate 77 76 Respiratory Rate 18 16 Blood Pressure 102/50 L Pulse Oximetry 99 94 Intake/Output Intake/Output: Intake & Output 04/13/21 04/14/21 04/15/21 04/16/21 23:59 23:59 23:59 23:59 Intake Total 900 1550 2290 900 Output Total 2329 3630 600 Balance 837 -076 -9594 300 Meds/Results Medications: Active Medications Generic Name Dose Route Start Last Admin Trade Name Freq PRN Reason Stop Dose Admin Acetaminophen 500 mg 04/16/21 09:44 Acetaminophen 500 Mg Tablet PO Q6H PRN Mild Pain (1-3) or Fever Hydrocodone Bitart/Acetaminophen 1 tab 04/16/21 09:44 Hydrocodone/Acetaminophen (*Crx) 5-325 Mg Tablet
--- NOTE | 2021-04-16 13:17 | WPDANESPN ---
Anes - Prog Note Post-Op Date/Time: 04/16/21 13:17 Cardiovascular status: normal Respiratory status: normal Airway patency: baseline Mental status: baseline Post-Op hydration status: normal Vital Signs: Last Vital Signs Temp 36.3 C L 04/16/21 04:56 Pulse 76 04/16/21 09:36 Resp 16 04/16/21 09:36 BP 102/50 L 04/16/21 04:56 Pulse Ox 94 04/16/21 09:36 Pain Score (VAS): 0 I/O: Intake & Output 04/15/21 04/16/21 04/16/21 23:59 07:59 15:59 Intake Total 1100 240 660 Output Total 2430 600 1200 Balance -1330 -360 -540 Laboratory Tests 04/16/21 05:18 04/16/21 05:18 04/16/21 04/16/21 05:18 05:18 WBC 10.8 H RBC 2.71 L Hgb 8.2 L Hct 25.6 L MCV 94.5 MCH 30.3 MCHC 32.0 RDW 14.8 H Plt Count 326 MPV 9.7 Sodium 137 Potassium 4.4 Chloride 106 Carbon Dioxide 24 Anion Gap 7 L BUN 9 Creatinine 0.70 Estim Creat Clear Calc 48 Estimated GFR > 60 Glucose 148 H Calcium 8.1 L Post-procedural complaints: none Patient Feedback: Patient satisfied with anesthetic care.
[2021-04-16 13:55] VITALS: BP 104/52; PULSE 75; RESP 16; TEMP 36.6; O2SAT 98
--- NOTE | 2021-04-16 14:38 | WPDONCPN ---
Progress Note: A/P - Additional Plan Gastric mass status post laparoscopic resection. Pathology report is pending. Operative report noted that showed complete resection of the tumor. Patient will follow-up me in the office to discuss the final pathology repeated and further recommendations. Iron deficiency anemia. This is secondary to bleeding from the submucosal mass which has now been removed. Hemoglobin stable. She will continue iron replacement therapy - Time Spent With Patient Total time spent is greater than 50% in coordination of care (as documented) at patient's floor/unit and/or counseling patient: 15 - 25 minutes Subjective Interval history: Stomach mass likely gist tumor status post resection Iron deficiency anemia Review of Systems - Review of Systems Patient is recovering well from the surgery. She is still have some abdominal discomfort. Denies any melena hematochezia. No nausea vomiting. Denies any diarrhea and constipation. Complain of tiredness and fatigue. - Neurologic Reports hearing normal, Reports disequilibrium, Denies confusion, Denies syncope, Denies frequent falls, Denies headache(s), Denies focal weakness, Denies seizure-like activity, Denies sensory deficit Exam Vital signs: Temp Pulse Resp BP Pulse Ox 36.6 C 75 16 104/52 L 98 04/16/21 13:55 04/16/21 13:55 04/16/21 13:55 04/16/21 13:55 04/16/21 13:55 Narrative: Lungs are clear to auscultation bilaterally Cardiovascular regular rate rhythm no murmurs Abdomen slightly distended incision sites noted looks clean with no signs of infection Extremities no edema PN: Objective Data - Labs CBC & Chem 7: 04/16/21 05:18 04/16/21 05:18 Labs: Laboratory Results - last 24 hr 04/16/21 04/16/21 05:18 05:18 WBC 10.8 H RBC 2.71 L Hgb 8.2 L Hct 25.6 L MCV 94.5 MCH 30.3 MCHC 32.0 RDW 14.8 H Plt Count 326 MPV 9.7 Sodium 137 Potassium 4.4 Chloride 106 Carbon Dioxide 24 Anion Gap 7 L BUN 9 Creatinine 0.70 Estim Creat Clear Calc 48 Estimated GFR > 60 Glucose 148 H Calcium 8.1 L
[2021-04-16] MEDS: FAMOTIDINE 20 MG TABLET PO (20:18)
[2021-04-16 22:00] VITALS: BP 112/48; PULSE 75; RESP 20; TEMP 37.5; O2SAT 98
[2021-04-17 05:43] LABS: Hematocrit 25.1 % (37.0-47.0); Hemoglobin 8.1 g/dL (12.0-15.0); Mean Corpuscular HGB Conc 32.3 g/dl (32-36); Mean Corpuscular Hemoglobin 30.1 pg (26-34); Mean Corpuscular Volume 93.3 fl (80-100); Mean Platelet Volume 9.9 fl (7.4-10.4); Platelet Count Result 317 k/mm3 (150-375); Red Blood Count 2.69 M/mm3 (4.2-5.4); Red Cell Distribution Width 15.1 % (11.5-14.5); White Blood Count 8.5 K/mm3 (4.5-10.0)
[2021-04-17 05:53] LABS: Anion Gap 4 mmol/L (8-16); Blood Urea Nitrogen 9 mg/dL (7-17); Calcium 8.2 mg/dL (8.4-10.2); Carbon Dioxide 29 mmol/L (22-30); Chloride 107 mmol/L (98-107); Estimated CRCL calculation 38 ml/min; Estimated Glomerular Filt Rate 60; Glucose 101 mg/dL (65-110); Potassium 3.7 mmol/L (3.4-5.0); Sodium 140 mmol/L (137-145)
[2021-04-17 06:00] VITALS: BP 133/55; PULSE 77; RESP 16; TEMP 36.2; O2SAT 92
[2021-04-17] MEDS: ATORVASTATIN 20 MG TABLET PO (08:19)
[2021-04-17] MEDS: FAMOTIDINE 20 MG TABLET PO ×2 (08:19→20:49)
[2021-04-17] MEDS: ENOXAPARIN 40 MG/0.4 ML SYRINGE SUB-Q (08:19)
[2021-04-17] MEDS: estradioL 0.5 MG TABLET PO (08:19)
--- NOTE | 2021-04-17 09:51 | PM.IMPN ---
Progress Note: A&P Additional Plan START OF DOCTOR MINGO?S PROGRESS NOTE Subjective: The patient was has no complaints at this time. She denies abdominal pain. She states that she has been tolerating p.o.. She states postop febrile postoperatively she has not yet had a bowel movement and she denies flatus. Overnight she denies fever, rigors, nausea, vomiting, cough, wheeze, abdominal pain, chest pain, dyspnea, or any other concerns or complaints. I have explained to the patient her current medical condition plan of care and answered all her questions Objective: General: -Alert -No acute distress -No dyspnea -No tachypnea Heart: -Regular rate -Regular rhythm -No murmurs -No gallops -No rubs Lungs: -No wheeze -No rhonchi -No rales Abdomen: -normal bowel sounds in all 4 quadrants -No rebound -No guarding -No tenderness -laparoscopic incision sites look clean Extremities: -2/4 pulse in all four extremities -No clubbing -No cyanosis -No edema Additional Details / Additional Findings / Exceptions / Miscellaneous: Pertinent Laboratory Results / Pertinent Radiology Results / Pertinent Diagnostic Results / Pertinent Vital Signs: Vital signs stable. Hemoglobin 8.1 Assessment / Plan: Melena. Appreciate Gastroenterology evaluate the patient. 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 Appreciate surgery evaluate the patient. Patient status post April 15, 2021 general surgery: Laparoscopic resection submucosal gastric neoplasm. Will monitor hemoglobin closely Iron deficiency anemia. Monitor hemoglobin closely. Resume upon discharge: Ferrous sulfate 325 mg p.o. b.i.d. plus vitamin-C 500 mg p.o. daily GERD. Pepcid 20 mg p.o. q.12 hours Hyperlipidemia. Lipitor 20 mg p.o. q.h.s. Osteopenia 4 mm pulmonary mass. Radiology report does not indicate which side. Appreciate pulmonology evaluated the patient. I will have the patient repeat CT chest with IV contrast 3 months post discharge for reassessment or according to pulmonology as findings recommendations. Outpatient follow-up with pulmonology DVT prophylaxis. Lovenox 40 mg subcutaneously daily Disposition: Anticipate discharge within 24 hours END OF DOCTOR MINGO?S PROGRESS NOTE Subjective Date/time seen: 04/17/21 09:51 Objective Data Vital Signs Vital Signs: Vital Signs - 24 hr 04/16/21 13:55 04/16/21 22:00 04/17/21 06:00 Temperature 97.9 F 99.5 F 97.2 F L Pulse Rate 75 75 77 Respiratory Rate 16 20 16 Blood Pressure 104/52 L 112/48 L 133/55 L Pulse Oximetry 98 98 92 Intake/Output Intake/Output: Intake & Output 04/14/21 04/15/21 04/16/21 04/17/21 23:59 23:59 23:59 23:59 Intake Total 1550 2290 1880 590 Output Total 2325 3630 2650 700 [facility] [phone] Meds/Results Medications: Active Medications Generic Name Dose Route Start Last Admin Trade Name Freq PRN Reason Stop Dose Admin Acetaminophen 500 mg 04/16/21 09:44 Acetaminophen 500 Mg Tablet PO Q6H PRN Mild Pain (1-3) or Fever Hydrocodone Bitart/Acetaminophen 1 tab 04/16/21 09:44 Hydrocodone/Acetaminophen (*Crx) 5-325 Mg Tablet PO Q4H PRN Pain Rated 4-6 Hydrocodone Bitart/Acetaminophen 1 tab 04/16/21 09:44 Hydrocodone/Acetaminophen (*Crx) 7.5-325 Mg Tablet PO Q4H PRN Pain Rated 7-10 Atorvastatin Calcium 20 mg 04/14/21 10:00 04/17/21 08:19 Atorvastatin 20 Mg Tablet PO 20 mg DAILY RYANN Administration Enoxaparin Sodium 40 mg 04/16/21 09:00 04/17/21 08:19 Enoxaparin 40 Mg/0.4 Ml Syringe SUB-Q 40 mg DAILY RYANN Administration Estradiol 0.5 mg 04/14/21 10:05 04/17/21 08:19 Estradiol 0.5 Mg Tablet PO 0.5 mg DAILY RYANN Administration Famotidine 20 mg 04/16/21 21:00 04/17/21 08:19 Famotidine 20 Mg Tablet PO 20 mg Q12HR RYANN Administration Charanjitfe
[2021-04-17] MEDS: POTASSIUM CHLORIDE 20 MEQ TABLET PO (10:33)
[2021-04-17] MEDS: guaiFENesin/DEXTROMETHORPHAN 10 ML UDC PO (11:23)
--- NOTE | 2021-04-17 11:31 | PM.PNGS ---
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 Seems to be healing well postop day 2 after laparoscopic partial gastric resection. Continue to ambulate. He advanced to solid food. Probably home tomorrow. Labs are stable. (2) Upper gastrointestinal bleeding: Code(s): K92.2 - Gastrointestinal hemorrhage, unspecified Status: Acute Assessment and Plan: Likely from ulceration associated with submucosal neoplasm. No evidence of persistent bleeding postop. Will restart ferrous sulfate for iron deficiency anemia. Subjective Subjective Date/Time Seen: 04/17/21 11:31 Post Op day: 2 Patient reports: no new complaints, feels better, tolerating liquids well and no bowel movement Exam Const: General: comfortable and no acute distress; No confusion Orientation/consciousness: patient oriented x3 and No confusion GI: Inspection: non-distended, incision ( Healing well, dry.) and no visible herniation GI Palp: Yes Soft to palpation, No Guarding due to palpation present (GI), No Hernia present, No Palpable mass present and No Rebound tenderness present Auscultation: normal bowel sounds Neuro: General: patient oriented x3, no focal motor deficits and No confusion Extrem: General: no calf tenderness and no edema Psych: Affect: normal affect Insight: Good insight present (Psych) Judgement: Good judgement present (Psych) Objective Data Vital Signs Vital Signs: Vital Signs - 24 hr 04/16/21 13:55 04/16/21 22:00 04/17/21 06:00 Temperature 36.6 C 37.5 C 36.2 C L Pulse Rate 75 75 77 Respiratory Rate 16 20 16 Blood Pressure 104/52 L 112/48 L 133/55 L Pulse Oximetry 98 98 92 Intake/Output Intake/Output: Intake & Output 04/14/21 04/15/21 04/16/21 04/17/21 23:59 23:59 23:59 23:59 Intake Total 1550 2290 1880 590 Output Total 2325 3630 2650 700 Balance -775 -1340 -770 -110 Meds/Results Medications: Active Medications Generic Name Dose Route Start Last Admin Trade Name Freq PRN Reason Stop Dose Admin Acetaminophen 500 mg 04/16/21 09:44 Acetaminophen 500 Mg Tablet PO Q6H PRN Mild Pain (1-3) or Fever Hydrocodone Bitart/Acetaminophen 1 tab 04/16/21 09:44 Hydrocodone/Acetaminophen (*Crx) 5-325 Mg Tablet PO Q4H PRN Pain Rated 4-6 Hydrocodone Bitart/Acetaminophen 1 tab 04/16/21 09:44 Hydrocodone/Acetaminophen (*Crx) 7.5-325 Mg Tablet PO Q4H PRN Pain Rated 7-10 Atorvastatin Calcium 20 mg 04/14/21 10:00 04/17/21 08:19 Atorvastatin 20 Mg Tablet PO 20 mg DAILY RYANN Administration Enoxaparin Sodium 40 mg 04/16/21 09:00 04/17/21 08:19 Enoxaparin 40 Mg/0.4 Ml Syringe SUB-Q 40 mg DAILY RYANN Administration Estradiol 0.5 mg 04/14/21 10:05 04/17/21 08:19 Estradiol 0.5 Mg Tablet PO 0.5 mg DAILY RYANN Administration Famotidine 20 mg 04/16/21 21:00 04/17/21 08:19 Famotidine 20 Mg Tablet PO 20 mg Q12HR RYANN Administration Ferrous Sulfate 324 mg 04/17/21 17:00 Ferrous Sulfate 324 Mg Tablet PO BIDWM RYANN Guaifenesin/Dextromethorphan 10 ml 04/16/21 12:16 04/17/21 11:23 Guaifenesin/Dextromethorphan 10 Ml Udc PO 10 ml Q4H PRN Administration Cough Morphine Sulfate 1 mg 04/15/21 19:37 Morphine Sulfate (*Crx) 2 Mg/Ml Inj IV PUSH Q2H PRN Pain Rated 4-6 Morphine Sulfate 2 mg 04/15/21 19:37 Morphine Sulfate (*Crx) 2 Mg/Ml Inj IV PUSH Q2H PRN Pain Rated 7-10 Naloxone HCl 0.1 mg 04/15/21 19:37 Naloxone Hcl 0.4 Mg/Ml Vial IV PUSH Q2M PRN Opiate Reversal Ondansetron HCl 4 mg 04/15/21 19:37 Ondansetron Inj 4 Mg/2 Ml Vial IV PUSH Q4H PRN Nausea And Vomiting Potassium Chloride 20 meq 04/17/21 17:00 Potassium Chloride 20 Meq Tablet.Er PO BIDWM RYANN Radiology
[2021-04-17 15:02] VITALS: BP 146/71; PULSE 89; RESP 28; TEMP 36.7; O2SAT 93
[2021-04-17] MEDS: FERROUS SULFATE 324 MG TABLET PO (16:10)
[2021-04-17] MEDS: POTASSIUM CHLORIDE 20 MEQ TABLET.ER PO (16:10)
[2021-04-17] MEDS: ACETAMINOPHEN 500 MG TABLET PO (20:48)
[2021-04-17 22:00] VITALS: BP 131/55; PULSE 81; RESP 18; TEMP 36.7; O2SAT 97
[2021-04-18 05:44] LABS: Hematocrit 28.2 % (37.0-47.0); Hemoglobin 8.9 g/dL (12.0-15.0); Mean Corpuscular HGB Conc 31.6 g/dl (32-36); Mean Corpuscular Hemoglobin 29.5 pg (26-34); Mean Corpuscular Volume 93.4 fl (80-100); Mean Platelet Volume 9.6 fl (7.4-10.4); Platelet Count Result 330 k/mm3 (150-375); Red Blood Count 3.02 M/mm3 (4.2-5.4); Red Cell Distribution Width 14.7 % (11.5-14.5); White Blood Count 6.6 K/mm3 (4.5-10.0)
[2021-04-18 05:49] LABS: Anion Gap 4 mmol/L (8-16); Blood Urea Nitrogen 10 mg/dL (7-17); Calcium 8.7 mg/dL (8.4-10.2); Carbon Dioxide 29 mmol/L (22-30); Chloride 107 mmol/L (98-107); Estimated CRCL calculation 42 ml/min; Estimated Glomerular Filt Rate > 60; Glucose 106 mg/dL (65-110); Potassium 3.9 mmol/L (3.4-5.0); Sodium 140 mmol/L (137-145)
[2021-04-18 06:00] VITALS: BP 144/64; PULSE 77; RESP 20; TEMP 36.3; O2SAT 98
[2021-04-18] MEDS: POTASSIUM CHLORIDE 20 MEQ TABLET.ER PO (08:36)
[2021-04-18] MEDS: estradioL 0.5 MG TABLET PO (08:36)
[2021-04-18] MEDS: ATORVASTATIN 20 MG TABLET PO (08:36)
[2021-04-18] MEDS: FERROUS SULFATE 324 MG TABLET PO (08:36)
[2021-04-18] MEDS: ENOXAPARIN 40 MG/0.4 ML SYRINGE SUB-Q (08:36)
[2021-04-18] MEDS: FAMOTIDINE 20 MG TABLET PO (08:36)
--- NOTE | 2021-04-18 09:14 | PM.IMPN ---
Progress Note: A&P Additional Plan START OF DOCTOR MINGO?S PROGRESS NOTE Subjective: The patient offers no complaints at this time. She denies abdominal pain. She states that she is tolerating p.o.. Postoperatively she indicates that she has not yet had a bowel movement or flatus. Overnight she denies fever, rigors, nausea, vomiting, cough, wheeze, chest pain, dyspnea, or any other constitutional complaints. I have explained to the patient her current medical condition plan of care and answered all her questions Objective: General: -Alert -No acute distress -No dyspnea -No tachypnea Heart: -Regular rate -Regular rhythm -No murmurs -No gallops -No rubs Lungs: -No wheeze -No rhonchi -No rales Abdomen: -normal bowel sounds in all 4 quadrants -No rebound -No guarding -No tenderness -laparoscopic incision sites look clean Extremities: -2/4 pulse in all four extremities -No clubbing -No cyanosis -No edema Additional Details / Additional Findings / Exceptions / Miscellaneous: Pertinent Laboratory Results / Pertinent Radiology Results / Pertinent Diagnostic Results / Pertinent Vital Signs: Blood pressure 144/64, hemoglobin 8.9 Assessment / Plan: Melena. Appreciate Gastroenterology evaluate the patient. 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 Appreciate surgery evaluate the patient. Patient status post April 15, 2021 general surgery: Laparoscopic resection submucosal gastric neoplasm. Will monitor hemoglobin closely Iron deficiency anemia. Monitor hemoglobin closely. Ferrous sulfate 325 mg p.o. b.i.d. GERD. Pepcid 20 mg p.o. q.12 hours Hyperlipidemia. Lipitor 20 mg p.o. q.h.s. Osteopenia 4 mm pulmonary mass. Radiology report does not indicate which side. Appreciate pulmonology evaluated the patient. I will have the patient repeat CT chest with IV contrast 3 months post discharge for reassessment or according to pulmonology as findings recommendations. Outpatient follow-up with pulmonology DVT prophylaxis. Lovenox 40 mg subcutaneously daily Disposition: Patient medically stable for discharge END OF DOCTOR MINGO?S PROGRESS NOTE Subjective Date/time seen: 04/18/21 09:14 Objective Data Vital Signs Vital Signs: Vital Signs - 24 hr 04/17/21 15:02 04/17/21 22:00 04/18/21 06:00 Temperature 98.0 F 98.1 F 97.3 F L Pulse Rate 89 81 77 Respiratory Rate 28 H 18 20 Blood Pressure 146/71 H 131/55 L 144/64 H Pulse Oximetry 93 97 98 Intake/Output Intake/Output: Intake & Output 04/15/21 04/16/21 04/17/21 04/18/21 23:59 23:59 23:59 23:59 Intake Total 2290 1880 2330 560 Output Total 3630 2650 4100 1000 Balance -1345 -770 -1770 -440 Meds/Results Medications: Active Medications Generic Name Dose Route Start Last Admin Trade Name Freq PRN Reason Stop Dose Admin Acetaminophen 500 mg 04/16/21 09:44 04/17/21 20:48 Acetaminophen 500 Mg Tablet PO 500 mg Q6H PRN Administration Mild Pain (1-3) or Fever Hydrocodone Bitart/Acetaminophen 1 tab 04/16/21 09:44 Hydrocodone/Acetaminophen (*Crx) 5-325 Mg Tablet PO Q4H PRN Pain Rated 4-6 Hydrocodone Bitart/Acetaminophen 1 tab 04/16/21 09:44 Hydrocodone/Acetaminophen (*Crx) 7.5-325 Mg Tablet PO Q4H PRN Pain Rated 7-10 Atorvastatin Calcium 20 mg 04/14/21 10:00 04/18/21 08:36 Atorvastatin 20 Mg Tablet PO 20 mg DAILY RYANN Administration Enoxaparin Sodium 40 mg 04/16/21 09:00 04/18/21 08:36 Enoxaparin 40 Mg/0.4 Ml Syringe SUB-Q 40 mg DAILY RYANN Administration Estradiol 0.5 mg 04/14/21 10:05 04/18/21 08:36 Estradiol 0.5 Mg Tablet PO 0.5 mg DAILY RYANN Administration Famotidine 20 mg 04/16/21 21:00 04/18/21 08:36 Famotidine 20 Mg Tablet PO 20 mg Q12HR RYANN Administration Ferrous Sulfate 324 mg 04/17/21 17:00 04/18/21 08:36
--- NOTE | 2021-04-18 09:25 | PM.DS ---
DS: Admitting Diagnosis Discharge Date 9:27 a.m. on April 18, 2021 Admitting Diagnosis Melena. Appreciate Gastroenterology evaluate the patient. 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 Appreciate surgery evaluate the patient. Patient status post April 15, 2021 general surgery: Laparoscopic resection submucosal gastric neoplasm. DS: Summary Hospital Course Hospital Course: See discharge summary below Time Spent with Patient Time attestation: Total time spent providing and/or coordinating discharge services: START OF DOCTOR MINGO?S DISCHARGE SUMMARY Date of Admission: April 13, 2021 Date of Discharge: 9:25 a.m. on on April 18, 2021 Primary Diagnosis: Melena. Appreciate Gastroenterology evaluate the patient. 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 Appreciate surgery evaluate the patient. Patient status post April 15, 2021 general surgery: Laparoscopic resection submucosal gastric neoplasm. Secondary Diagnosis: Iron deficiency anemia GERD Hyperlipidemia Osteopenia 4 mm pulmonary mass for which patient will require CT chest with IV contrast 3 months post discharge for reassessment: August 10, 2021 Consultations: Pulmonology, General surgery, Gastroenterology Disposition: The patient will be advised follow-up with surgery 7 days post discharge or as directed for post surgical evaluation The patient is advised follow-up with Gastroenterology as directed The patient is advised follow-up with her primary care physician 10-14 days post discharge for post hospitalization evaluation. Patient will need to arrange for CT chest with IV contrast 3 months post discharge with her primary care physician for diagnosis of 4 mm pulmonary mass-side unspecified in radiology report: Approximately August 10, 2021 Discharge Medications: Lipitor 20 mg p.o. q.h.s. Estradiol 0.5 mg p.o. daily Ferrous sulfate 325 mg p.o. b.i.d. Vitamin-C 500 mg p.o. daily Pepcid 20 mg p.o. q.12 hours END OF DOCTOR MINGO?S DISCHARGE SUMMARY DS: Data Data Completed and Pending Completed studies during hospitalization: Pending at discharge 04/14/21 14:17 Surgical [PTH] Routine Pending studies at discharge: Pending at discharge 04/15/21 17:41 Surgical [PTH] Routine Labs on day of discharge: Labs from last 24 hours 04/18/21 04/18/21 05:20 05:20 WBC 6.6 RBC 3.02 L Hgb 8.9 L Hct 28.2 L MCV 93.4 MCH 29.5 MCHC 31.6 L RDW 14.7 H Plt Count 330 MPV 9.6 Sodium 140 Potassium 3.9 Chloride 107 Carbon Dioxide 29 Anion Gap 4 L BUN 10 Creatinine 0.80 Estim Creat Clear Calc 42 Estimated GFR > 60 Glucose 106 Calcium 8.7 Discharge Plan Discharge Consulting providers: Catracho Clay ; Major Cuellar ; Maximiliano Jackson ; Bebo Malloy Discharging Clinician: Dr. Harris Patient Disposition: Home, Self-Care Activity: as tolerated Diet: low cholesterol and low fat Wound Care Instructions: follow printed instructions Discharge Instructions: The patient will be advised follow-up with surgery 7 days post discharge or as directed for post operative evaluation The patient is advised follow-up with Gastroenterology as directed The patient is advised follow-up with her primary care physician 10-14 days post discharge for post hospitalization evaluation. The patient will need to arrange for CT chest with IV contrast 3 months post discharge for reassessment of 4 mm pulmonary mass-sided unspecified and radiology report Patient Instructions: Antibiotic Form Stand Alone Forms: General Discharge Information Follow-up/Referrals: Bacilio Harris DO [Physician] - Discharge Medications: New famoti
[2021-04-18 09:41] VITALS: O2SAT 98
--- NOTE | 2021-04-18 12:12 | PM.PNGS ---
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 Okay to discharge today. I discussed her discharge instructions. I will see her in 10-14 days. We will call once the pathology is back. (2) Upper gastrointestinal bleeding: Code(s): K92.2 - Gastrointestinal hemorrhage, unspecified Status: Resolved Assessment and Plan: Resolved with resection of submucosal neoplasm of stomach. (3) Acute blood loss anemia: Code(s): D62 - Acute posthemorrhagic anemia Status: Chronic Assessment and Plan: To go home on ferrous sulfate twice a day (4) Abnormal computed tomography of abdomen and pelvis: Code(s): R93.5 - Abnormal findings on diagnostic imaging of other abdominal regions, including retroperitoneum Status: Acute Assessment and Plan: Pulmonary nodule noted on CT scan. Patient will see Dr. Bautista to arrange follow-up CT as well as postop medical care in approximately 2 weeks. Subjective Subjective Date/Time Seen: 04/18/21 12:12 Post Op day: 3 Patient reports: no new complaints, feels better, pain is less, tolerating a regular diet and afebrile Exam Const: General: comfortable and no acute distress; No confusion Orientation/consciousness: patient oriented x3 and No confusion GI: Inspection: non-distended and incision (Dry, healing, doing well) GI Palp: Yes Soft to palpation and Yes Tenderness to palpation present (GI) (Minimal tenderness) Auscultation: normal bowel sounds Neuro: General: patient oriented x3, no focal motor deficits and No confusion Extrem: General: no calf tenderness and no edema Psych: Affect: normal affect Insight: Good insight present (Psych) Judgement: Good judgement present (Psych) Objective Data Vital Signs Vital Signs: Vital Signs - 24 hr 04/17/21 15:02 04/17/21 22:00 04/18/21 06:00 Temperature 36.7 C 36.7 C 36.3 C L Pulse Rate 89 81 77 Respiratory Rate 28 H 18 20 Blood Pressure 146/71 H 131/55 L 144/64 H Pulse Oximetry 93 97 98 04/18/21 09:41 Temperature Pulse Rate Respiratory Rate Blood Pressure Pulse Oximetry 98 Intake/Output Intake/Output: Intake & Output 04/15/21 04/16/21 04/17/21 04/18/21 23:59 23:59 23:59 23:59 Intake Total 2290 1880 2330 800 Output Total 3630 0710 4100 1000 Balance -4470 -770 -1770 -200 Meds/Results Medications: Active Medications Generic Name Dose Route Start Last Admin Trade Name Freq PRN Reason Stop Dose Admin Acetaminophen 500 mg 04/16/21 09:44 04/17/21 20:48 Acetaminophen 500 Mg Tablet PO 500 mg Q6H PRN Administration Mild Pain (1-3) or Fever Hydrocodone Bitart/Acetaminophen 1 tab 04/16/21 09:44 Hydrocodone/Acetaminophen (*Crx) 5-325 Mg Tablet PO Q4H PRN Pain Rated 4-6 Hydrocodone Bitart/Acetaminophen 1 tab 04/16/21 09:44 Hydrocodone/Acetaminophen (*Crx) 7.5-325 Mg Tablet PO Q4H PRN Pain Rated 7-10 Atorvastatin Calcium 20 mg 04/14/21 10:00 04/18/21 08:36 Atorvastatin 20 Mg Tablet PO 20 mg DAILY RYANN Administration Enoxaparin Sodium 40 mg 04/16/21 09:00 04/18/21 08:36 Enoxaparin 40 Mg/0.4 Ml Syringe SUB-Q 40 mg DAILY RYANN Administration Estradiol 0.5 mg 04/14/21 10:05 04/18/21 08:36 Estradiol 0.5 Mg Tablet PO 0.5 mg DAILY RYANN Administration Famotidine 20 mg 04/16/21 21:00 04/18/21 08:36 Famotidine 20 Mg Tablet PO 20 mg Q12HR RYANN Administration Ferrous Sulfate 324 mg 04/17/21 17:00 04/18/21 08:36 Ferrous Sulfate 324 Mg Tablet PO 324 mg BIDWM RYANN Administration Guaifenesin/Dextromethorphan 10 ml 04/16/21 12:16 04/17/21 11:23 Guaifenesin/Dextromethorphan 10 Ml Udc PO 10 ml Q4H PRN Administration Cough Morphine Sulfate 1 mg 04/15/21 19:37 Morphine Sulfate (*Crx) 2 Mg/Ml Inj IV PUSH
== END 2021-04-18 13:03 | disposition home or self-care (01) | DRG 327 ==
LOC: ANHED 16:27 → ANH2MED 04-14 07:37
PROVIDERS: Emergency Medicine; Internal Medicine Gastroenterology; Physician Assistant; Surgery; Admitting Provider Internal Medicine; Emergency Provider Emergency Medicine; PCP Family Medicine; Visit Provider Internal Medicine
PROC: 0DJ08ZZ Inspection of Upper Intestinal Tract, Via Natural or Artificial Opening Endoscopic (ICD-10-PCS; CPT 43235; principal; 2021-04-14 16:00)
PROC: 0DV44ZZ Restriction of Esophagogastric Junction, Percutaneous Endoscopic Approach (ICD-10-PCS; CPT 43281; principal; 2021-04-15 14:30)
DX: C49.A2 Gastrointestinal stromal tumor of stomach (principal); K92.1 Melena; D62 Acute posthemorrhagic anemia; D50.9 Iron deficiency anemia, unspecified; E78.5 Hyperlipidemia, unspecified; Z88.2 Allergy status to sulfonamides; K21.9 Gastro-esophageal reflux disease without esophagitis; M85.80 Other specified disorders of bone density and structure, unspecified site; Q89.2 Congenital malformations of other endocrine glands; Z87.891 Personal history of nicotine dependence; R93.5 Abnormal findings on diagnostic imaging of other abdominal regions, including retroperitoneum; R91.1 Solitary pulmonary nodule; I27.20 Pulmonary hypertension, unspecified
CPT/HCPCS: 36415; 70450; 71046; 71275; 74176; 74178; 77063; 77067; 80048; 80053; 80076; 81003; 82607; 82728; 82746; 83540; 83550; 83735; 83880; 84484; 85014; 85018; 85025; 85027; 85380; 85610; 85730; 86850; 86900; 86901; 88304; 88305; 88309; 88342; 93005; 96361; 96376; 99285; A9270; C1713; C9113; G0378; J0690; J1650; J2001; J2270; J2704; J3010; J3480; J7030; J7120; Q9967

== ENCOUNTER 2021-05-10 12:29 | Outpatient (CLI) | payer MEDICARE, BC, SELFPAY ==
[2021-05-10 13:01] LABS: Basophils Percent Auto 0.4 % (0.2-1.2); Eosinophils Absolute Auto 0.1 K/mm3 (0-0.3); Eosinophils Percent Auto 1.1 % (0-4.4); Hematocrit 37.8 % (37.0-47.0); Hemoglobin 11.6 g/dL (12.0-15.0); Immature Granulocyte Absolute 0.02 K/mm3 (0.00-0.031); Immature Granulocyte Percent A 0.3 % (0-0.5); Lymphocytes Absolute Auto 1.84 K/mm3 (0.9-3.2); Lymphocytes Percent Auto 25.8 % (18.3-44.2); Mean Corpuscular HGB Conc 30.7 g/dl (32-36); Mean Corpuscular Hemoglobin 29.3 pg (26-34); Mean Corpuscular Volume 95.5 fl (80-100); Mean Platelet Volume 9.7 fl (7.4-10.4); Monocytes Absolute Auto 0.6 K/mm3 (0.1-0.6); Neutrophils Absolute Auto 4.6 K/mm3 (1.3-6.7); Neutrophils Percent Auto 64.4 % (45.5-73.1); Platelet Count Result 342 k/mm3 (150-375); Red Blood Count 3.96 M/mm3 (4.2-5.4); Red Cell Distribution Width 13.5 % (11.5-14.5); Reticulocyte Hemoglobin Conten 34.6 pg (28.2-35.7); Reticulocyte Percent 1.83 % (0.7-4.3); Reticulocytes Absolute 0.07 B/L (32.2-175.7); White Blood Count 7.1 K/mm3 (4.5-10.0)
[2021-05-10 14:21] LABS: Alanine Aminotransferase 18 U/L (4-35); Albumin Level 3.9 g/dL (3.5-5.1); Alkaline Phosphatase 73 U/L (38-126); Anion Gap 5 mmol/L (8-16); Aspartate Amino Transferase 27 U/L (14-36); Bilirubin,Total 0.7 mg/dL (0.2-1.3); Blood Urea Nitrogen 14 mg/dL (7-17); Calcium 9.8 mg/dL (8.4-10.2); Carbon Dioxide 32 mmol/L (22-30); Chloride 105 mmol/L (98-107); Estimated Glomerular Filt Rate 60; Glucose 112 mg/dL (65-110); Potassium 3.7 mmol/L (3.4-5.0); Sodium 142 mmol/L (137-145)
[2021-05-10 14:35] LABS: Iron 20 ug/dL (37-170)
== END 2021-05-10 12:30 | disposition home or self-care (01) ==
PROVIDERS: PCP Family Medicine; Visit Provider Family Medicine
DX: R41.0 Disorientation, unspecified (principal)
CPT/HCPCS: 36415; 80053; 82728; 83540; 85025; 85046

== ENCOUNTER 2021-05-22 10:10 | Emergency (ER) | payer MEDICARE, BC, SELFPAY ==
--- NOTE | ~2021-05-22 | XR_ITS ---
EXAMINATION: XR ankle LT min 3V DATE: 05/22/2021 10:25 INDICATION: Left ankle pain. Fall. TECHNIQUE: 4 views of left ankle were obtained. COMPARISON: Left ankle radiographs 08/31/2009 FINDINGS: There is an oblique fracture of distal fibula with medial aspect of the fracture line at th e level of the tibial plafond. The distal fracture fragment demonstrates 2 mm posterolateral displace ment. Joint spaces are normal. There is an enthesophyte at plantar aspect of calcaneal tuberosity. An kle soft tissue swelling is noted. IMPRESSION: 1. Oblique fracture of distal fibula. Reviewed, dictated and finalized at location A. [facility]
--- NOTE | 2021-05-22 10:12 | ED.GENADULT ---
HPI - General Adult General Chief complaint: Extremity Injury, Lower Stated complaint: lt foot injury Time Seen by Provider: 05/22/21 10:11 Source: patient Mode of arrival: ambulatory Limitations: no limitations History of Present Illness HPI narrative: 81 y/o female. PMHx HTN, HLD, BHARGAVI, GI Bleed. Presents to [facility] this AM with acute complaints of LT ankle and foot pain S/P Fall. Pt reports a mechanical fall at home 48 hours ago. Tripped on step and 'twisted left ankle . She reports worsening pain in her lower extremity, with activity such as prolonged ambulation. She denies additional injury. Client has not yet sought out medical evaluation until now, today. She is without additional acute c/o illness upon PE. Related Data Home Medications Medication Instructions Recorded Confirmed atorvastatin 20 mg PO DAILY 04/13/21 05/17/21 estradiol 0.5 mg PO DAILY 04/13/21 05/17/21 Allergies Allergy/AdvReac Type Severity Reaction Status Date / Time Sulfa (Sulfonamide Allergy Unknown caused Verified 05/17/21 13:16 Antibiotics) kidney infection 60 years ago. Review of Systems Review of Systems: CONSTITUTIONAL: Denies fever, chills, sweats. EYES: Denies visual changes, redness, discharge. ENT: Denies rhinorrhea, congestion, sore throat, otalgia. CARDIOVASCULAR: Denies chest pain, palpitations, edema. RESPIRATORY: Denies dyspnea, wheezing, cough GASTROINTESTINAL: Denies abdominal pain, nausea, vomiting, diarrhea. GENITOURINARY: Denies dysuria, hematuria, abnormal discharge SKIN: Denies rash or itching. MUSCULOSKELETAL: LT Foot/Ankle pain. Denies acute back pain, or additional joint pain, or myalgia. NEUROLOGIC: Denies numbness, or focal weakness. PSYCHIATRIC: Denies anxiety or depression. All systems reviewed & are unremarkable except as noted in HPI and below [facility] Past Medical History Medical History Abnormal computed tomography of abdomen and pelvis Abnormal CT of the chest Abnormal CT scan, stomach Acute blood loss anemia Acute dyspnea Dizziness and giddiness Gastroesophageal reflux disease Hypercholesterolemia Melena Osteopenia Pulmonary nodules Shortness of breath Submucosal neoplasm of gastrointestinal tract 04/15/2021 Laparoscopic resection submucosal gastric neoplasm Thyroglossal duct cyst Surgical History Surgical History History of bilateral salpingo-oophorectomy (07/2002) At the time of an exploratory laparotomy done for a pelvic mass, found to have a benign growth on the right ovary, reportedly a cyst adenofibroma. History of colonoscopy (11/2008) Internal hemorrhoids. History of exploratory laparotomy (07/2002) History of hysterectomy for benign disease History of tonsillectomy (1955) Family History Family History Mother Family history of elevated blood lipids, Onset Age: 95 Thyroid disorder Father Family history of lymphoma Sibling Thyroid disorder Social History Social History Social History: Surrogate decision maker: Vanessa Tidwell, . Code status: Full code. Smoking packs per day: 0.25 Smoking cigarettes per day: 5.0 Years smoked: 2 Smoking pack-years: 0.50 Tobacco type: cigarettes Second hand tobacco smoke exposure: No Alcohol intake: current Alcohol use details: Rare alcohol use in moderation. Substance use: never Additional living arrangements comments: as of September 2020. Lives in her own home in [place] with her 10-year-old [place] named Shanelle. No children. 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 Spiritual care concerns: No Exam Narrative: GENERAL: This is a well-nourished, well-develope
[2021-05-22 10:19] VITALS: BP 186/79; PULSE 90; RESP 18; TEMP 36.9; O2SAT 100
== END 2021-05-22 11:05 | disposition home or self-care (01) ==
PROVIDERS: Emergency Provider Nurse Practitioner Adult Health; PCP Family Medicine
DX: S82.832A Other fracture of upper and lower end of left fibula, initial encounter for closed fracture (principal); X50.9XXA Other and unspecified overexertion or strenuous movements or postures, initial encounter; F17.210 Nicotine dependence, cigarettes, uncomplicated; K21.9 Gastro-esophageal reflux disease without esophagitis; E78.00 Pure hypercholesterolemia, unspecified; Z85.09 Personal history of malignant neoplasm of other digestive organs
CPT/HCPCS: 29515; 73610; 99214; G0463

== ENCOUNTER 2021-08-09 09:20 | Outpatient (CLI) | payer MEDICARE, BC, SELFPAY ==
--- NOTE | ~2021-08-09 | CT_ITS ---
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 The dose-length product (DLP) was 113.35 mGy-cm. Ite rative reconstruction was used. COMPARISON: 04/13/2021 FINDINGS: There is a stable 4 mm nodule of the right middle lobe. No focal airspace opacities are hanna ntified. There is mild atelectasis. There is no pleural effusion or pneumothorax. No pathologically e nlarged thoracic lymph nodes are identified. The heart size is normal. There is moderate thoracic spo ndylosis. There has been interval resection of the previously described gastric mass. Stones are pres ent in the nondistended gallbladder. IMPRESSION: 1. 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 Reviewed, dictated and finalized at location B. IN COLLECTOR IMPRESSION: 1. 4 mm nodule of the right middle lobe which is stable but remains indetermina te given history of gastrointestinal stromal tumor of the stomach.
[2021-08-09 09:53] LABS: Estimated Glomerular Filt Rate > 60
== END 2021-08-09 09:21 | disposition home or self-care (01) ==
PROVIDERS: PCP Family Medicine; Visit Provider Internal Medicine Hematology & Oncology
DX: R91.8 Other nonspecific abnormal finding of lung field (principal)
CPT/HCPCS: 71260; Q9967

== ENCOUNTER 2021-08-17 16:07 | Outpatient (CLI) | payer MEDICARE, BC, SELFPAY ==
[2021-08-17 16:38] LABS: Basophils Percent Auto 0.5 % (0.2-1.2); Eosinophils Absolute Auto 0.1 K/mm3 (0-0.3); Eosinophils Percent Auto 0.6 % (0-4.4); Hematocrit 43.9 % (37.0-47.0); Hemoglobin 14.2 g/dL (12.0-15.0); Immature Granulocyte Absolute 0.01 K/mm3 (0.00-0.031); Immature Granulocyte Percent A 0.1 % (0-0.5); Lymphocytes Absolute Auto 3.12 K/mm3 (0.9-3.2); Lymphocytes Percent Auto 38.3 % (18.3-44.2); Mean Corpuscular HGB Conc 32.3 g/dl (32-36); Mean Corpuscular Hemoglobin 27.8 pg (26-34); Mean Corpuscular Volume 86.1 fl (80-100); Mean Platelet Volume 10.2 fl (7.4-10.4); Monocytes Absolute Auto 0.6 K/mm3 (0.1-0.6); Monocytes Percent Auto 7.5 % (2.6-8.5); Neutrophils Absolute Auto 4.3 K/mm3 (1.3-6.7); Platelet Count Result 277 k/mm3 (150-375); White Blood Count 8.1 K/mm3 (4.5-10.0)
[2021-08-17 16:52] LABS: Alanine Aminotransferase 16 U/L (4-35); Albumin Level 4.2 g/dL (3.5-5.1); Alkaline Phosphatase 96 U/L (38-126); Anion Gap 7 mmol/L (8-16); Aspartate Amino Transferase 26 U/L (14-36); Bilirubin,Total 1.2 mg/dL (0.2-1.3); Blood Urea Nitrogen 19 mg/dL (7-17); Calcium 9.8 mg/dL (8.4-10.2); Carbon Dioxide 30 mmol/L (22-30); Chloride 103 mmol/L (98-107); Estimated Glomerular Filt Rate 53; Glucose 103 mg/dL (65-110); Potassium 4.4 mmol/L (3.4-5.0); Sodium 140 mmol/L (137-145)
[2021-08-17 17:43] LABS: Platelet Estimate Adequate (Adequate); Smudge Cells FEW
== END 2021-08-17 16:08 | disposition home or self-care (01) ==
LOC: ANHLAB 16:12
PROVIDERS: PCP Family Medicine; Visit Provider Internal Medicine Hematology & Oncology
DX: D50.9 Iron deficiency anemia, unspecified (principal)
CPT/HCPCS: 36415; 80053; 85025

== ENCOUNTER 2022-02-15 08:33 | Outpatient (CLI) | payer MEDICARE, BC, SELFPAY ==
--- NOTE | ~2022-02-15 | CT_ITS ---
EXAMINATION: CT chest abdomen w con DATE: 02/15/2022 09:16 INDICATION: Lung mass, malignant gastrointestinal stromal tumor TECHNIQUE: Computed tomography (CT) of the chest, abdomen, and pelvis was performed with 100 CC Omnip aque 350 intravenous contrast. Automated exposure control and iterative reconstruction technique were employed. Exam dose: 216.64 mGy-cm total exam DLP. COMPARISON: 08/09/2021 CT chest 04/14/2021 CT abdomen pelvis FINDINGS: CHEST CT: Stable 4 mm middle lobe nodule (series 4 image 64), unchanged since 08/09/2021. Again noted is some di scoid atelectasis and/or scarring of the lower lungs including middle lobe, lingula and left lower lo be. No interval pulmonary mass lesion or pulmonary infiltrate or consolidation. Normal heart size. Coronary artery calcification. No pericardial effusion. No thoracic aortic aneurysm or dissection. There is aortic calcification. No hilar or mediastinal mass lesion or lymphadenopathy. ABDOMEN/PELVIS CT: There are multiple stones in the dependent aspect of the gallbladder. No gallbladder wall thickening or pericholecystic fluid or fat stranding. No bile duct dilatation. Diffuse hepatic steatosis. Occasional small hepatic cysts, stable since 04/14/2021. Normal splenic size. Stable small splenule at the lower anterolateral margin of the spleen. No pancre atic mass lesion, calcification or ductal dilatation. No renal mass lesion or scarring or urinary tra ct calculus or hydroureteronephrosis is detected. There is atherosclerotic calcification of the abdominal aorta. No intraperitoneal or retroperitoneal mass lesion or adenopathy or ascites. There are numerous sutures of the gastric fundus. Small fat-containing umbilical hernia. Diffuse idiopathic skeletal hyperostosis of the thoracic spine. Grade 1 anterolisthesis at L4-5 due to degenerative change at the apophyseal joints. No suspicious osteolytic or osteoblastic lesions are noted. IMPRESSION: Postoperative change of the stomach; no abdominal mass lesion or adenopathy is evident Cholelithiasis Occasional small hepatic cysts Hepatic steatosis Stable 4 mm middle lobe nodule, not changed since 04/14/2021 Reviewed, dictated and finalized at Location A. Reviewed, dictated and finalized at location B. IMPRESSION: Postoperative change of the stomach; no abdominal mass lesion or a denopathy is evident Cholelithiasis Occasional small hepatic cysts Hepatic steatosis Stable 4 mm middle lobe nodule, not changed since 04/14/2021
[2022-02-15 09:11] LABS: Estimated Glomerular Filt Rate > 60
== END 2022-02-15 08:34 | disposition home or self-care (01) ==
PROVIDERS: PCP Family Medicine; Visit Provider Internal Medicine Hematology & Oncology
DX: R91.8 Other nonspecific abnormal finding of lung field (principal); K80.20 Calculus of gallbladder without cholecystitis without obstruction; K76.0 Fatty (change of) liver, not elsewhere classified
CPT/HCPCS: 71260; 74160; Q9967

== ENCOUNTER 2022-04-16 08:27 | Outpatient (CLI) | payer MEDICARE, BC, SELFPAY ==
--- NOTE | ~2022-04-16 | XR_ITS ---
XR knee LT min 4V 04/16/2022 08:58 Indication: Chronic left knee pain Procedure: 4 views left knee Comparison: No prior studies for comparison. Findings: There is mild tricompartment osteoarthritis of the left knee. No fracture, subluxation or d islocation. No significant joint effusion. There are soft tissue swelling medial to the knee, nonspec ific. 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 Reviewed, dictated and finalized at location A. 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
--- NOTE | ~2022-04-16 | XR_ITS ---
XR knee RT min 4V 04/16/2022 08:58 Indication: Right knee pain Procedure: 4 views right knee Comparison: No prior studies for comparison. Findings: There is tricompartment osteoarthritis of the right knee, severe in the medial compartment. No acute fracture or traumatic malalignment. No significant joint effusion. No foreign bodies. Impression: 1: Tricompartment osteoarthritis of the right knee, severe in the medial compartment. Reviewed, dictated and finalized at location A. Impression: 1: Tricompartment osteoarthritis of the right knee, severe in the medial compar tment.
== END 2022-04-16 08:28 | disposition home or self-care (01) ==
LOC: ANHIMG 08:32
PROVIDERS: PCP Emergency Medicine; Visit Provider Emergency Medicine
DX: M25.562 Pain in left knee (principal); M25.561 Pain in right knee; M17.0 Bilateral primary osteoarthritis of knee
CPT/HCPCS: 73564

== ENCOUNTER 2022-04-26 09:34 | Outpatient (CLI) | payer MEDICARE, BC, SELFPAY ==
--- NOTE | ~2022-04-26 | MR_ITS ---
EXAMINATION: MR lumbar spine wo con DATE: 04/26/2022 10:39 INDICATION: Lower extremity weakness. TECHNIQUE: Magnetic resonance imaging (MRI) of the lumbar spine was performed without intravenous con trast. Sequences included sagittal T2-weighted FSE, sagittal T2-weighted FS FSE, sagittal T1-weighted FSE, and axial T2-weighted FSE. COMPARISON: None FINDINGS: There is 10 degrees levoscoliosis of lumbar spine. There is 4 mm anterolisthesis of L4 on L 5. Vertebral body heights are normal. There is mildly decreased disc height at L2-L3 and L3-L4 and mo derately decreased disc height at L4-L5. The distal spinal cord signal intensity is normal. The conus medullaris is at T12-L1. The following disc levels are specifically discussed: L1-L2: The disc does not extend beyond the endplate margin. There is mild right facet joint osteoarth ritis. There is no neural foraminal stenosis. There is no central canal stenosis. L2-L3: The disc is bulging. There is mild bilateral facet joint osteoarthritis. There is mild bilater al neural foraminal stenosis. There is mild central canal stenosis. L3-L4: The disc is bulging. There is mild bilateral facet joint osteoarthritis. There is mild bilater al neural foraminal stenosis. There is mild central canal stenosis. L4-L5: The disc is bulging and has an annular fissure. There is severe bilateral facet joint osteoart hritis. There is mild bilateral neural foraminal stenosis. There is mild central canal stenosis. L5-S1: The disc does not extend beyond the endplate margin. There is severe right and moderate left f acet joint osteoarthritis. There is mild bilateral neural foraminal stenosis. There is no central can al stenosis. IMPRESSION: 1. Moderate lumbar spondylosis. 2. Lumbar levoscoliosis. Reviewed, dictated and finalized at location B.
== END 2022-04-26 09:35 | disposition home or self-care (01) ==
PROVIDERS: PCP Emergency Medicine; Visit Provider Emergency Medicine
DX: R20.2 Paresthesia of skin (principal); R29.898 Other symptoms and signs involving the musculoskeletal system; M47.816 Spondylosis without myelopathy or radiculopathy, lumbar region; M41.86 Other forms of scoliosis, lumbar region
CPT/HCPCS: 72148

== ENCOUNTER 2022-06-21 07:22 | Outpatient (CLI) | payer MEDICARE, BC, SELFPAY ==
--- NOTE | ~2022-06-21 | MM_ITS ---
EXAMINATION: MM screening connie BI w fernando HISTORY: Screening TECHNIQUE: Craniocaudal and mediolateral oblique 3-D tomosynthesis images were obtained and synthetic 2-D images were generated. CAD analysis was submitted and interpreted. COMPARISON: Comparison to multiple prior studies sequentially, with oldest reviewed study dated 10/29. BREAST PARENCHYMAL COMPOSITION: The breasts are heterogeneously dense, which may obscure small masses . FINDINGS: There is no evidence of suspicious mass, calcification, or architectural distortion to sugg est malignancy in either breast. There has been no suspicious interval change. IMPRESSION: 1. No mammographic evidence of malignancy. 2. Recommend routine screening mammography in one year. BI-RADS Category 1: Negative Reviewed, dictated and finalized at location B. ATOR EXAMINER
--- NOTE | ~2022-06-21 | DEXA_ITS ---
Bone Density Report Name: CHRISTIE EDMONDS Age: 82 Sex: Female Ethnicity: White Date of : 1940 Indication: osteopenia; parental hip fracture; height loss; prior fracture; cancer; hysterectomy; postmenopausal Referring Provider: RAMA BANUELOS Study: Bone densitometry was performed. Exam Date: June 21, 2022 Accession number: [id number] Bone Density: Region BMD T-score Z-score Classification AP Spine(L1-L4) 0.900 -1.3 1.4 Osteopenia Femoral Neck (Left) 0.660 -1.7 0.7 Osteopenia Total Hip (Left) 0.774 -1.4 0.8 Osteopenia Femoral Neck (Right) 0.607 -2.2 0.2 Osteopenia Total Hip (Right) 0.722 -1.8 0.4 Osteopenia Total Hip Mean 0.748 -1.6 0.6 Osteopenia World Health Organization criteria for BMD impression classify patients as: Normal (T-score at or above -1.0), Osteopenia (T-score between -1.0 and -2.5), or Osteoporosis (T-score at or below -2.5). 10-year Fracture Risk(1): Major Osteoporotic Fracture 40% Hip Fracture 27% Reported Risk Factors: [place] (), Neck BMD=0.607, BMI=24.3, previous fracture, parental fracture (1) FRAX(R) Version 3.08. Fracture probability calculated for an untreated patient. Fracture probability may be lower if the patient has received treatment. Previous Exams: Region Exam Age BMD T-score BMD Change BMD Change Date g/cm2 vs Baseline vs Previous AP Spine (L1-L4) 06/21/2022 82 0.900 -1.3 -0.077 (-7.9%) -0.077 (-7.9%) 03/18/2020 79 0.977 -0.6 Total Hip(Left) 06/21/2022 82 0.774 -1.4 -0.097 (-11.1% -0.097 (-11.1% 03/18/2020 79 0.871 -0.6 Total Hip(Right) 06/21/2022 82 0.722 -1.8 -0.068 (-8.7%) -0.068 (-8.7%) 03/18/2020 79 0.791 -1.2 *Denotes significance at 95% confidence level, LSC for AP Spine = 0.022 g/cm2, LSC for Total Hip = 0.027 g/cm2 Clinical Information Provided by Patient: Has had a low trauma fracture Parent has had a hip fracture Has used the following medications: Vitamin D, Calcium Has the following medical conditions: Cancer, Hysterectomy, gist Patient maximum height was 64 Menopause Age: 45 Does not regularly consume dairy products Drinks caffeinated beverages Onset of menses at age 16 Number of children 0 Impression: The patient has low bone mass, based on the Right Femoral Neck T-score. The patient has an estimated ten-year risk of hip fracture of 27% and an estimated ten-year risk of major fracture of 40%, based on the WHO FRAX algorith
== END 2022-06-21 07:23 | disposition home or self-care (01) ==
LOC: ANHIMG 07:27
PROVIDERS: PCP Emergency Medicine; Visit Provider Physician Assistant
DX: Z12.31 Encounter for screening mammogram for malignant neoplasm of breast (principal); Z78.0 Asymptomatic menopausal state; M85.89 Other specified disorders of bone density and structure, multiple sites
CPT/HCPCS: 77063; 77067; 77080

== ENCOUNTER 2022-08-17 08:42 | Outpatient (CLI) | payer MEDICARE, BC, SELFPAY ==
--- NOTE | ~2022-08-17 | CT_ITS ---
EXAMINATION: CT chest abdomen pelvis w con DATE: 08/17/2022 09:19 INDICATION: Lung mass, history of gastrointestinal stromal tumor TECHNIQUE: Transaxial computed tomographic images of the chest, abdomen, and pelvis were obtained aft er the administration of 100 cc of Omnipaque 350 intravenous contrast. The dose-length product (DLP) was 02/15/2022 mGy-cm. Automated exposure control and iterative reconstruction technique were employed. COMPARISON: 02/15/2022, 08/09/2021, 04/13/2021 FINDINGS: CHEST CT: There is a stable 4 mm nodule of the right middle lobe. There is mild atelectasis of the lungs. No pl eural effusion or pneumothorax. No pathologically enlarged thoracic lymph nodes are identified. The h eart size is normal. There is moderate thoracic spondylosis. 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 There is calcified coronary artery atherosclerosis. ABDOMEN/PELVIS CT: Stones are present in the nondistended gallbladder. Cysts of the liver measure up to 3 mm. The spleen , pancreas, and adrenal glands are normal. There are surgical changes in the fundus of the stomach co nsistent with GIST resection. No residual mass is identified. Hypoattenuating lesions in the kidneys, measuring up to 4 mm, are too small to characterize but likely represent cysts. No pathologically en larged abdominal or pelvic lymph nodes are identified. There is calcified atherosclerosis of the aort a and many of the other arteries. No free intraperitoneal gas or evidence of bowel obstruction. The a ppendix is normal. Colonic diverticulosis is present without evidence of diverticulitis. Colonic dive rticulosis is present without evidence of diverticulitis. There is mild lumbar spondylosis. IMPRESSION: 1. Stable right middle lobe nodule, probably benign. 2. Surgical changes in the stomach without evidence of residual mass. Reviewed, dictated and finalized at location B. ICAL RESEARCH ANALYST
[2022-08-17 09:09] LABS: Estimated Glomerular Filt Rate 60
== END 2022-08-17 08:43 | disposition home or self-care (01) ==
LOC: ANHIMG 08:44
PROVIDERS: PCP Emergency Medicine; Visit Provider Internal Medicine Hematology & Oncology
DX: R91.8 Other nonspecific abnormal finding of lung field (principal)
CPT/HCPCS: 71260; 74177; Q9967